=== PATIENT | male | born 1990 | race Caucasian/White ===

== ENCOUNTER 2020-04-04 06:08 | Emergency (ER) | payer MEDICAID, SELFPAY ==
--- NOTE | ~2020-04-04 | CT_ITS ---
EXAMINATION: CT abd pelvis lumbar w con DATE: 04/04/2020 08:12 INDICATION: Abdominal and back pain. Left leg pain and difficulty walking. TECHNIQUE: Computed tomography (CT) of the abdomen, pelvis and lumbar spine was performed with 100 mL Omnipaque-350 intravenous contrast. Automated exposure control and iterative reconstruction techniqu e were employed. The dose-length product was 523.06 mGy-cm. COMPARISON: None FINDINGS: Abdomen/pelvis: Minimal dependent atelectasis in the bilateral lower lobes. Heart size is normal. No pericardial or p leural effusion. Focal hepatic steatosis along the ligamentum teres. Gallbladder, pancreas, right kid ronn and bilateral adrenal glands are normal. 4 mm low-attenuation likely cyst at the lower pole of th e left kidney which is too small to definitively characterize. Splenic calcification consistent with old granulomatous disease. Moderate amount of colonic stool primarily in the proximal colon. There ap pears to be mild wall thickening along the sigmoid colon which could be seen with colitis. No bowel o bstruction. Normal appendix. Bladder is normal. No free intraperitoneal gas or fluid. No pathological ly enlarged abdominal or pelvic lymphadenopathy. Lumbar spine: Alignment is normal. Vertebral body and disc heights are normal. Minimal disc bulges without signific ant central canal stenosis at L3-L4 and L4-L5. Prominent posterior central disc protrusion at L5-S1 w hich only minimally narrows central canal at this level. The bulge also contributes along with mild r ight and minimal left facet osteoarthritis, to mild bilateral neural foraminal stenosis at L5-S1. Mil d bilateral facet osteoarthritis at T12-L1 and L1-L2 and minimal facet osteoarthritis at the remainin g levels. No other central canal or neural foraminal stenosis. IMPRESSION: 1. Mild wall thickening at the sigmoid colon suspicious for colitis which could be infectious, inflam matory or less likely ischemic in etiology. 2. Mild lumbar spondylosis. Reviewed, dictated and finalized at location A. IMPRESSION: 1. Mild wall thickening at the sigmoid colon suspicious for colitis which could be infectious, inflammatory or less likely ischemic in etiology. 2. Mild lumbar spondylosis.
[2020-04-04 06:16] VITALS: BP 123/74; PULSE 71; RESP 22; TEMP 37.3; O2SAT 97
--- NOTE | 2020-04-04 07:03 | ED.BACK ---
HPI - Back Pain/Injury General Chief Complaint: Back Pain/Injury Stated Complaint: back pain Time Seen by Provider: 04/04/20 06:59 Source: patient and family Mode of arrival: ambulatory Limitations: no limitations History of Present Illness HPI Narrative: Patient is a 30-year-old male with a history of chronic lower back pain who presents for evaluation of back pain and abdominal pain. Pt states she has seen a chiropracter in the past for his back pain, and has had negative x rays. Pt states he has had over 4 Tylenol 3, a day for three months without any improvement. No recent falls or injuries. No fever. Pt reports nausea, vomiting, and abd pain. Pain is throughout abdomen, associated with nausea and emesis since 2 am this morning. No hx of abd surgeries. No dysuria or hematuria. No saddle anesthesia. No leg numbness. Pt denies IVDA. Related Data Home Medications Medication Instructions Recorded Confirmed acetaminophen-codeine tablet 04/04/20 cyclobenzaprine mg 04/04/20 meloxicam 04/04/20 Allergies Allergy/AdvReac Type Severity Reaction Status Date / Time Pertussis Vaccines Allergy Severe Dyspnea / Verified 04/04/20 07:19 SOB Review of Systems Review of Systems: Narrative: CONSTITUTIONAL: Denies fever, chills, or sweats. CARDIOVASCULAR: Denies chest pain, palpitations, or edema. RESPIRATORY: Denies cough or dyspnea. GASTROINTESTINAL:Reports abd pain, n ausea, and vomiting GENITOURINARY: Denies dysuria or hematuria. SKIN: Denies rash or itching. MUSCULOSKELETAL:Reports left lower back pain NEUROLOGIC: Denies headache, numbness, or weakness. [facility] Past Medical History Medical History (Updated 04/04/20 @ 08:58 by Yolette Camacho MD) Chronic back pain Surgical History Surgical History (Updated 04/04/20 @ 07:23 by Yolette Camacho MD) History of tonsillectomy Social History Social History Second hand tobacco smoke exposure: Yes Alcohol intake: never Exam Narrative: Exam Narrative: GENERAL: Awake, alert, conversant, uncomfortable appearing HEAD: Normocephalic, atraumatic. EYES: PERRLA and EOMI. ENT: Nares clear, no rhinorrhea or epistaxis. Mucous membranes dry NECK: Supple. CHEST: No respiratory distress, breathing even and non labored HEART: Regular rate, sinus rhythm ABDOMEN:Non distended, tender throughout abdomen, tender in right lower quadrant, no rebound or guarding EXTREMITIES: Decreased range of motion in the left lower extremity due to pain, no edema, no erythema, no warmth over the hip, knee or ankle, full flexion extension in both ankles without pain, + straight leg raise on the right. Intact EHL/FHL bilateral feet, strength 5/5. Lumbar: No midline pain, + left SI joint tenderness that reproduces pain SKIN: Warm, dry, no rash. NEURO:No focal deficits. Alert and oriented x3 Course Vital Signs Vital signs: Vital Signs Temperature 37.3 C 04/04/20 06:16 Pulse Rate 71 04/04/20 06:16 Respiratory Rate 22 H 04/04/20 06:16 Blood Pressure 123/74 04/04/20 06:16 Pulse Oximetry 97 04/04/20 06:16 Temperature 37.3 C 04/04/20 06:16 Pulse Rate 78 04/04/20 08:23 Respiratory Rate 19 04/04/20 08:23 Blood Pressure 116/74 04/04/20 08:23 Pulse Oximetry 99 04/04/20 08:23 MDM - Back Pain/Injury MDM Narrative Medical decision making narrative: Patient presented for evaluation of back pain and abdominal pain. At the time of initial assessment, ABCs are intact and vital signs are stable. Patient does have range of motion at the left hip, does not have any saddle anesthesia, numbness, weakness, has been ambulatory which makes me think a central cord lesion or severe canal stenosis would be less likely. No fever, no midline tenderness to suggest spinal epidural abscess. Patient does have a leukocytosis. This may be stress like reaction from pain versus due to colitis which was also found on his CT scan. Give
[2020-04-04] MEDS: ONDANSETRON INJ 4 MG/2 ML VIAL IV PUSH (07:36)
[2020-04-04] MEDS: FAMOTIDINE 20 MG/2 ML VIAL IV PUSH (07:36)
[2020-04-04 07:37] LABS: Basophils Percent Auto 0.2 % (0.2-1.2); Eosinophils Absolute Auto 0.1 K/mm3 (0-0.3); Eosinophils Percent Auto 0.5 % (0-4.4); Hematocrit 44.9 % (42.0-52.0); Hemoglobin 15.7 g/dL (14.0-18.0); Immature Granulocyte Absolute 0.05 K/mm3 (0.00-0.031); Immature Granulocyte Percent A 0.3 % (0-0.5); Lymphocytes Absolute Auto 1.32 K/mm3 (0.9-3.2); Lymphocytes Percent Auto 8.7 % (18.3-44.2); Mean Corpuscular Hemoglobin 30.3 pg (26-34); Mean Corpuscular Volume 86.5 fl (80-100); Mean Platelet Volume 8.9 fl (7.4-10.4); Monocytes Absolute Auto 0.5 K/mm3 (0.1-0.6); Monocytes Percent Auto 3.4 % (2.6-8.5); Neutrophils Absolute Auto 13.2 K/mm3 (1.3-6.7); Neutrophils Percent Auto 86.9 % (45.5-73.1); Platelet Count Result 335 k/mm3 (150-375); Red Blood Count 5.19 M/mm3 (4.6-6.20); Red Cell Distribution Width 11.7 % (11.5-14.5); White Blood Count 15.2 K/mm3 (4.5-10.0)
[2020-04-04] MEDS: SODIUM CHLORIDE 0.9% IV 1,000 ML 999 ML IV CONT (07:37)
[2020-04-04] MEDS: MORPHINE SULFATE 4 MG/ML INJ IV PUSH (07:37)
--- NOTE | 2020-04-04 07:48 | PC.NURSE ---
pt to CT scan
[2020-04-04 07:50] LABS: Add Urine Microscopic? NO; Appearance Urine Clear (Clear); Bilirubin Urine Negative (Negative); Blood Urine Negative (Negative); Color Urine Yellow (Yellow); Glucose Urine UA Negative (Negative); Ketones Urine Negative (Negative); Leukocyte Esterase Ur Negative LEU/UL (Negative); Nitrate Urine Negative (Negative); Protein Urine Negative (Negative); Specific Grav Ur 1.014 (1.001-1.035); Urobilinogen Urine Negative mg/dL (<2.0)
[2020-04-04 07:51] LABS: Alanine Aminotransferase 46 U/L (4-50); Albumin Level 4.9 g/dL (3.5-5.1); Alkaline Phosphatase 84 U/L (38-126); Aspartate Amino Transferase 36 U/L (17-59); Bilirubin,Total 0.4 mg/dL (0.2-1.3); Blood Urea Nitrogen 15 mg/dL (9-20); CRP 1.3 mg/dL (<1.0); Calcium 9.5 mg/dL (8.4-10.2); Carbon Dioxide 27 mmol/L (22-30); Chloride 103 mmol/L (98-107); Estimated Glomerular Filt Rate > 60; Glucose 106 mg/dL (75-110); Lipase 53 U/L (23-300); Potassium 4.3 mmol/L (3.4-5.0); Sodium 138 mmol/L (137-145)
[2020-04-04 08:02] LABS: Erythrocyte Sedimentation Rate 6 mm/hr (0-20)
[2020-04-04 08:23] VITALS: BP 116/74; PULSE 78; RESP 19; O2SAT 99
[2020-04-04] MEDS: diazePAM 5 MG TABLET PO (09:06)
== END 2020-04-04 09:29 | disposition home or self-care (01) ==
PROVIDERS: Emergency Provider Emergency Medicine; PCP Family Medicine
DX: S39.012A Strain of muscle, fascia and tendon of lower back, initial encounter (principal); K52.9 Noninfective gastroenteritis and colitis, unspecified; M47.816 Spondylosis without myelopathy or radiculopathy, lumbar region; X58.XXXA Exposure to other specified factors, initial encounter
CPT/HCPCS: 36415; 72132; 74177; 80053; 81003; 83690; 85025; 85652; 86140; 96361; 96374; 96375; 99284; A9270; J2270; J2405; J7030; Q9967

== ENCOUNTER 2020-05-01 03:41 | Emergency (ER) | payer MEDICAID, SELFPAY ==
--- NOTE | ~2020-05-01 | XR_ITS ---
EXAMINATION: XR abdomen/kub 1V DATE: 05/01/2020 04:24 INDICATION: Constipation. Lower abdominal pain. TECHNIQUE: A supine view of the abdomen on 2 radiographs was obtained. COMPARISON: CT dated 04/04/2020 FINDINGS: Normal bowel gas pattern with no dilated gas-filled loops of bowel. A few phleboliths in the pelvis. No evident urolithiasis. Visualized portions of the lung bases are clear. Bones are unremarkable. IMPRESSION: 1. Normal study. Reviewed, dictated and finalized at location A. IMPRESSION: 1. Normal study.
[2020-05-01 03:45] VITALS: BP 131/98; PULSE 120; RESP 12; TEMP 36.4; O2SAT 100
[2020-05-01 04:06] LABS: Basophils Percent Auto 0.4 % (0.2-1.2); Eosinophils Absolute Auto 0.2 K/mm3 (0-0.3); Eosinophils Percent Auto 2.9 % (0-4.4); Hematocrit 48.2 % (42.0-52.0); Hemoglobin 16.5 g/dL (14.0-18.0); Immature Granulocyte Absolute 0.01 K/mm3 (0.00-0.031); Immature Granulocyte Percent A 0.1 % (0-0.5); Lymphocytes Absolute Auto 2.07 K/mm3 (0.9-3.2); Lymphocytes Percent Auto 29.8 % (18.3-44.2); Mean Corpuscular HGB Conc 34.2 g/dl (32-36); Mean Corpuscular Hemoglobin 30.4 pg (26-34); Mean Corpuscular Volume 88.8 fl (80-100); Mean Platelet Volume 8.9 fl (7.4-10.4); Monocytes Absolute Auto 0.4 K/mm3 (0.1-0.6); Monocytes Percent Auto 6.2 % (2.6-8.5); Neutrophils Absolute Auto 4.2 K/mm3 (1.3-6.7); Neutrophils Percent Auto 60.6 % (45.5-73.1); Platelet Count Result 355 k/mm3 (150-375); Red Blood Count 5.43 M/mm3 (4.6-6.20); Red Cell Distribution Width 12.4 % (11.5-14.5)
[2020-05-01] MEDS: SODIUM CHLORIDE 0.9% IV 1,000 ML 999 ML IV CONT (04:09)
[2020-05-01] MEDS: ONDANSETRON INJ 4 MG/2 ML VIAL IV PUSH (04:09)
--- NOTE | 2020-05-01 04:09 | ED.ABDPAIN ---
HPI - Abdominal Pain General Chief Complaint: Abdominal Pain Stated Complaint: Colitis is back Time Seen by Provider: 05/01/20 03:48 History of Present Illness HPI narrative: He has chronic back pain, which he was seen here for 1 month ago. At that time he was also having abdominal pain. He had a CT showing colitis and leukocytosis. He was treated with cipro. He was also provided with valium for the back pain. He followed up with his PCP and they prescribed a lower dose so he was taking them more often and ran out. He then tried taking tylenol 3 again. He became constipated and is now having abdominal pain again. Related Data Home Medications Medication Instructions Recorded Confirmed acetaminophen-codeine tablet 04/04/20 meloxicam 04/04/20 Allergies Allergy/AdvReac Type Severity Reaction Status Date / Time Pertussis Vaccines Allergy Severe Dyspnea / Verified 05/01/20 03:53 SOB Review of Systems Review of Systems: All systems reviewed & are unremarkable except as noted in HPI and below Constitutional: Constitutional: Denies fever(s) Cardiovascular: Cardiovascular: Denies chest pain Respiratory: Respiratory: Denies dyspnea Gastrointestinal: Gastrointestinal: Reports abdominal pain, Reports constipation, Reports nausea and Reports vomiting Genitourinary: Genitourinary: Denies dysuria Musculoskeletal: Musculoskeletal: Reports back pain Neurologic: Denies numbness and Reports weakness PMFSH Social History Social History Second hand tobacco smoke exposure: Yes Alcohol intake: never Exam Const: General: no acute distress and alert Orientation/consciousness: patient oriented x3 HENMT: Head: normal to inspection Resp: Effort & Inspection: normal respiratory effort Auscultation: clear to auscultation bilaterally Cardio: Rate: regular rate Rhythm: regular rhythm GI: Inspection: non-distended GI Palp: Yes Soft to palpation, No Guarding due to palpation present (GI) and No Rebound tenderness present Skin: General skin exam: normal color Rashes: no rashes Neuro: General: patient oriented x3 and moves all extremities Speech: normal speech Other: Stable gait. Normal and equal strength Extrem: General: normal to inspection Course Vital Signs Vital signs: Vital Signs Temperature 36.4 C 05/01/20 03:45 Pulse Rate 120 H 05/01/20 03:45 Respiratory Rate 12 05/01/20 03:45 Blood Pressure 131/98 H 05/01/20 03:45 Pulse Oximetry 100 05/01/20 03:45 Temperature 36.3 C L 05/01/20 05:02 Pulse Rate 88 05/01/20 05:02 Respiratory Rate 19 05/01/20 05:02 Blood Pressure 130/64 05/01/20 05:02 Pulse Oximetry 100 05/01/20 05:02 MDM - Abdominal Pain Lab Data Result diagrams: 05/01/20 04:00 05/01/20 04:00 Labs: Lab Results 05/01/20 05/01/20 05/01/20 Range/Units 04:00 04:00 04:00 WBC 7.0 (4.5-10.0) K/mm3 RBC 5.43 (4.6-6.20) M/mm3 Hgb 16.5 (14.0-18.0) g/dL Hct 48.2 (42.0-52.0) % MCV 88.8 (80-100) fl MCH 30.4 (26-34) pg MCHC 34.2 (32-36) g/dl RDW 12.4 (11.5-14.5) % Plt Count 355 (150-375) k/mm3 MPV 8.9 (7.4-10.4) fl Immature Gran % (Auto) 0.1 (0-0.5) % Neut % (Auto) 60.6 (45.5-73.1) % Lymph % (Auto) 29.8 (18.3-44.2) % Elk % (Auto) 6.2 (2.6-8.5) % Eos % (Auto) 2.9 (0-4.4) % Baso % (Auto) 0.4 (0.2-1.2) % Lymph # (Auto) 2.07 (0.9-3.2) K/mm3 Elk # (Auto) 0.4 (0.1-0.6) K/mm3 Eos # (Auto) 0.2 (0-0.3) K/mm3 Baso # (Auto) 0.0 (0.0-0.1) K/mm3 Abs Immat Gran (auto) 0.01 (0.00-0.031) K/mm3 Absolute Neuts (auto) 4.2 (1.3-6.7) K/mm3 Absolute Nucleated RBC 0.0 (0.0-0.012) K/mm3 Nucleated RBC % 0.0 (0.0-0.2) % Sodium 141 (137-145) mmol/L Potassium 4.0 (3.4-5.0) mmol/L Chloride 104 (98-107) mmol/L Carbon Dioxide 31 H (22-30) mmol/L Anion Gap 6 L (8
[2020-05-01 04:18] LABS: Add Urine Microscopic? NO; Alanine Aminotransferase 57 U/L (4-50); Alkaline Phosphatase 95 U/L (38-126); Anion Gap 6 mmol/L (8-16); Appearance Urine Clear (Clear); Aspartate Amino Transferase 40 U/L (17-59); Bilirubin Urine Negative (Negative); Bilirubin,Total 0.5 mg/dL (0.2-1.3); Blood Urea Nitrogen 14 mg/dL (9-20); Blood Urine Negative (Negative); Calcium 10.1 mg/dL (8.4-10.2); Carbon Dioxide 31 mmol/L (22-30); Chloride 104 mmol/L (98-107); Color Urine Colorless (Yellow); Estimated Glomerular Filt Rate > 60; Glucose 113 mg/dL (75-110); Glucose Urine UA Negative (Negative); Ketones Urine Negative (Negative); Leukocyte Esterase Ur Negative LEU/UL (Negative); Lipase 61 U/L (23-300); Nitrate Urine Negative (Negative); Protein Urine Negative (Negative); Sodium 141 mmol/L (137-145); Specific Grav Ur 1.005 (1.001-1.035); Urobilinogen Urine Negative mg/dL (<2.0)
[2020-05-01 05:02] VITALS: BP 130/64; PULSE 88; RESP 19; TEMP 36.3; O2SAT 100
== END 2020-05-01 05:03 | disposition home or self-care (01) ==
PROVIDERS: Emergency Provider Emergency Medicine; PCP Family Medicine
DX: R10.84 Generalized abdominal pain (principal)
CPT/HCPCS: 36415; 74018; 80053; 81003; 83690; 85025; 96361; 96374; 99284; J2405; J7030

== ENCOUNTER 2020-05-08 06:36 | Outpatient (CLI) | payer MEDICAID, SELFPAY ==
--- NOTE | ~2020-05-08 | MR_ITS ---
EXAMINATION: MR lumbar spine wo/w con EXAM DATE: 05/08/2020 08:05 INDICATION: Low back pain. TECHNIQUE: Multi-sequential, multiplanar MR images of the lumbar spine were obtained without contrast . Sagittal T1, T2, T2 fat saturation images. Axial T2 weighted images. Axial T1 weighted sequence. Patient was then injected with 15 mL Multihance intravenous contrast and reimaged. Postcontrast axi al and sagittal T1-weighted fat saturation sequences were obtained. There is no prior study for bobby patterson. FINDINGS: There is mild to moderate disc disease L5-S1 with annular fissure. The vertebral body and d isc heights are otherwise well maintained. There is 2-3 mm retrolisthesis L5 on S1. There are no susp icious marrow signal abnormalities. Paraspinal soft tissue is unremarkable. There is no pneumothorax suspected. There are no areas of abnormal enhancement on the post contrast images. Level by level evaluation: T12-L1: Disc does not extend beyond the endplate margin. Facet arthropathy: None. Neural foraminal stenosis: No stenosis. Central canal stenosis: No stenosis. L1-L2: Disc does not extend beyond the endplate margin. Facet arthropathy: None. Neural foraminal stenosis: No stenosis. Central canal stenosis: No stenosis. L2-L3: Disc does not extend beyond the endplate margin. Facet arthropathy: None. Neural foraminal stenosis: No stenosis. Central canal stenosis: No stenosis. L3-L4: Disc does not extend beyond the endplate margin. Facet arthropathy: Mild. Neural foraminal stenosis: No stenosis. Central canal stenosis: No stenosis. L4-L5: There is a minimal diffuse disc bulge. Facet arthropathy: Mild. Neural foraminal stenosis: No stenosis. Central canal stenosis: No stenosis. L5-S1: There is a mild diffuse disc bulge. Central annular fissure. Facet arthropathy: Mild. Neural foraminal stenosis: Mild bilateral. Central canal stenosis: Mild. IMPRESSION: 1. Mild lower lumbar spondylosis. Reviewed, dictated and finalized at location B.
== END 2020-05-08 06:37 | disposition home or self-care (01) ==
PROVIDERS: PCP Family Medicine; Visit Provider Family Medicine
DX: M47.896 Other spondylosis, lumbar region (principal)
CPT/HCPCS: 72158; A9577

== ENCOUNTER 2021-08-11 08:30 | Outpatient (RCR) | payer OTHER, SELFPAY ==
--- NOTE | 2021-07-28 15:21 | PTOPEVAL ---
Thank you for referring Brad Corey to [facility].? The patient is scheduled to be seen for therapy? 1-2 x/week for 8 weeks. Please review, sign, date and return this plan of care SAHY. I agree with and certify that the following plan of care is medically necessary. Referring Physician Date Attending Provider: Ramírez Castaneda, Diagnosis OA of back Additional Evaluation Detail x-ray by chiro told him it was a bulging disc MRI February 2020: There is mild to moderate disc disease L5-S1 with annular fissure. The vertebral body and disc heights are otherwise well maintained. There is 2-3 mm retrolisthesis L5 on S1. Subjective Information He had back pain starting 02/05 Query Text:As Reported By Patient/ when his was giving him Family a massage. He received an injection March 08 with no relief of symptoms. He was seen by a neurosurgeon, no surgery recommended. EMG normal. He received 3-4 therapy visits, but stopped due to pain. He reports he has ant hip pain as well as the low back pain. His back pain is being managed with medication. He has been using the cane since February for distance walking. He is limiting with lifting, bedning over, right leg movement due to hip pain and popping. Denies numbness or tingling in LE, but ant hip pain with prolonged sitting. He is not working, but trying for disability due to [place] and left eye blindness. Pain Assessment Right Anterior Hip(s) Reported Pain Level 6 Pain Description Tightness Pain Frequency Chronic,Continuous Lowest Pain Intensity 6 Greatest Pain Intensity 10 Pain Aggravating Factors Bending,Exercise/Activity, Lifting,Sitting,Walking Bilateral Lower Back Reported Pain Level 3 Pain Frequency Chronic,Continuous Lowest Pain Intensity 3 Greatest Pain Intensity 6 Pain Aggra
--- NOTE | 2021-08-04 14:21 | PCPTNOTE ---
Patient called & cancelled scheduled appointment this date due to being out of town.
--- NOTE | 2021-08-18 09:01 | PCPTNOTE ---
Patient did not show up for scheduled appointment this date. Called and spoke with Pt. He stated I called my doctor and am waiting to hear back on whether or not to continue therapy due to increased hip pain. Pt requested to keep 's appointment and he will call if he needs to cancel. This is Pt's first N/S.
--- NOTE | 2021-08-20 08:59 | PCPTNOTE ---
Patient did not show up for scheduled appointment this date. Called and left voicemail about missed appointment. Informed Pt of upcoming Re-eval on 08/25/21 and to call if unable to make it. This is Pt's 2 N/S.
--- NOTE | 2021-08-25 08:49 | PCPTNOTE ---
Patient did not show up for scheduled appointment this date.Will DC him due to 3rd no show and re-eval visit.
--- NOTE | 2021-08-25 08:51 | PCPTNOTE ---
Admitting Provider: Attending Provider: Ramírez Castaneda, Physical Therapy Discharge Note Patient:Brad Corey Date of :1990 Patient has not returned for any further treatments since 08/11/2021, therefore he will be discharged at this time. Patient?s initial visit was on 07/28/2021 10:30 and he had a total of 3 visits with 4 canceled/no show visits. The goals have been not met due to his limited compliance with therapy. Thank you for referring this patient to [facility]. Please review, sign, date and return this discharge summary SHAY. I have been updated about the patient's current status and I agree with discharge from the above service at this time. Referring Physician Date
== END 2021-08-26 17:15 | disposition home or self-care (01) ==
LOC: ANHPT 08:30
PROVIDERS: PCP Family Medicine; Visit Provider Family Medicine
DX: M19.90 Unspecified osteoarthritis, unspecified site (principal)
CPT/HCPCS: 97014; 97110; 97140; 97162; G0283

== ENCOUNTER 2021-09-18 08:24 | Outpatient (CLI) | payer OTHER, SELFPAY ==
--- NOTE | ~2021-09-18 | XR_ITS ---
EXAMINATION: XR hip BI 2V w AP pelvis EXAM DATE: 09/18/2021 08:43 INDICATION: Right hip pain. TECHNIQUE: Each hip imaged independently (separate right and also left hip) 'frog leg' and frontal p rojections for interpretation. Frontal projection pelvis. There is no prior study for comparison. FINDINGS: No radiographic evidence of hip avascular necrosis. There are no acute fractures or disloc ations identified. There is no subcutaneous gas. The soft tissue is unremarkable. There are no ra diopaque foreign bodies. IMPRESSION: Normal x-ray exam. Reviewed, dictated and finalized at location A. B MANAGER IMPRESSION: Normal x-ray exam.
== END 2021-09-18 08:25 | disposition home or self-care (01) ==
DX: M25.551 Pain in right hip (principal)
CPT/HCPCS: 73521

== ENCOUNTER 2021-10-26 08:21 | Emergency (ER) | payer OTHER, SELFPAY ==
[2021-10-26 08:26] VITALS: BP 132/85; PULSE 84; RESP 14; TEMP 36; O2SAT 98
--- NOTE | 2021-10-26 09:18 | ED.GENADULT ---
HPI - General Adult General Chief complaint: Wound/Laceration Stated complaint: mouth injury Time Seen by Provider: 10/26/21 09:07 Source: patient Mode of arrival: ambulatory Limitations: no limitations History of Present Illness HPI narrative: Patient presents for evaluation of facial injury. He indicates he was shoveling his grandmother's residence today when the shovel hit him in the face, just below the lower lip. He reports a wound to the inner lower lip. No LOC. Reports some bleeding from the inner lip and from the wound just below the external aspect of the lower lip. Denies any significant pain. Denies dental injury. Date of last tetanus 3 years ago. He is not diabetic. No additional complaints or concerns. Related Data Home Medications Medication Instructions Recorded Confirmed acetaminophen-codeine tablet 04/04/20 meloxicam 04/04/20 Allergies Allergy/AdvReac Type Severity Reaction Status Date / Time Pertussis Vaccines Allergy Severe Dyspnea / Verified 10/26/21 08:28 SOB Review of Systems Review of Systems: CONSTITUTIONAL: Denies fever, chills, or sweats. EYES: Denies visual changes, redness, or discharge. ENT: Reports wound to inner aspect of lower lip and below the lower lip externally. Denies rhinorrhea, congestion, sore throat, or otalgia. CARDIOVASCULAR: Denies chest pain, palpitations, or edema. RESPIRATORY: Denies cough or dyspnea. GASTROINTESTINAL: Denies abdominal pain, nausea, vomiting, or diarrhea. GENITOURINARY: Denies dysuria or hematuria. SKIN: Denies rash or itching. MUSCULOSKELETAL: Denies back pain, joint pain, or myalgia. NEUROLOGIC: Denies headache, numbness, dizziness, or weakness. PSYCHIATRIC: Denies anxiety or depression. [facility] Past Medical History Medical History Chronic back pain Surgical History Surgical History History of tonsillectomy Family History Family History Mother Family history non-contributory Social History Social History (Updated 10/26/21 @ 09:27 by ALETA Proctor, BC) Second hand tobacco smoke exposure: Yes Alcohol intake: never Substance use: current Substance use type: marijuana Living arrangements: with family Gender identity (if verbalized by the patient): Male Sexual Orientation (if Verbalized by the Patient): Straight or Heterosexual Spiritual care concerns: No Exam Narrative: GENERAL: Well-appearing, well-nourished, and in no acute distress. HEAD: Normocephalic EYES: PERRLA and EOMI. ENT: Nares clear, no rhinorrhea or epistaxis. Mucous membranes moist. Approximately 5mm puncture mary to inner aspect of lower lip. Oropharynx without tonsillar hypertrophy exudate or other lesions. Bilateral TMs pearly blunt nonbulging NECK: Supple. No adenopathy or masses. No carotid bruits or JVD CHEST: Clear to auscultation. No respiratory distress. No wheezes rales or rhonchi HEART: Regular rate and rhythm. No murmur heard. Normal peripheral pulses. ABDOMEN: Soft, nontender, nondistended, normal active bowel sounds. EXTREMITIES: Normal range of motion. No edema. SKIN: Approximately 8mm linear abrasion in transverse formation just inferior to lower lip externally. This does not appear to communicate with wound to inner lower lip. Warm, dry, no rash. NEURO: No focal deficits. Alert and oriented x3. PSYCH: Normal mood and affect. Course Course Emergency Course: This is a 31-year-old male who presented for evaluation of an abrasion to the face and puncture wound to inner aspect of lower lip. These do not appear to communicate with one another. Bleeding is controlled on my exam. It does not appear that either wound would benefit from closure, however I did offer to do so. Pt declined. He is UTD on tetanus. He was advised on wound care. He sh
[2021-10-26 11:07] VITALS: BP 138/81; PULSE 70; RESP 14; TEMP 36.7; O2SAT 99
== END 2021-10-26 09:28 | disposition home or self-care (01) ==
PROVIDERS: Emergency Provider Nurse Practitioner
DX: S01.511A Laceration without foreign body of lip, initial encounter (principal); W22.8XXA Striking against or struck by other objects, initial encounter; Y93.H1 Activity, digging, shoveling and raking
CPT/HCPCS: 99282

== ENCOUNTER 2021-12-02 09:27 | Emergency (ER) | payer OTHER, SELFPAY ==
[2021-12-02 09:32] VITALS: BP 150/97; PULSE 86; RESP 16; TEMP 36.4; O2SAT 99
[2021-12-02 10:33] VITALS: BP 126/89; PULSE 76; RESP 16; TEMP 36.9; O2SAT 99
--- NOTE | 2021-12-02 11:01 | ECG_ITS ---
Measurements Intervals [place] Rate: 66 P: 44 [place]: 135 QRS: 43 QRSD: 87 T: 40 QT: 362 QTc: 382 Interpretive Statements SINUS RHYTHM COMPARED TO ECG 05/25/2019 00:57:50 NO SIGNIFICANT CHANGES Electronically Signed On 12-02-2021 13:14:58 CDT by Marilyn Reed M.D.
--- NOTE | 2021-12-02 11:02 | ED.WEAKNESS ---
HPI - Weakness General Chief complaint: Weakness Stated complaint: ? medication reaction Time Seen by Provider: 12/02/21 10:48 History of Present Illness HPI Narrative: 31-year-old male presents emergency room with complaints of irritability, shortness of breath, occasional palpitations, inability to concentrate, brain fog. Patient states that he abruptly discontinued his diazepam 3 weeks ago and his symptoms started 1 week ago. Related Data Home Medications Medication Instructions Recorded Confirmed docusate sodium PO 12/02/21 12/02/21 pantoprazole PO 12/02/21 polyethylene glycol 3350 12/02/21 pregabalin 12/02/21 Allergies Allergy/AdvReac Type Severity Reaction Status Date / Time Pertussis Vaccines Allergy Severe Dyspnea / Verified 12/02/21 09:35 SOB Review of Systems Review of Systems: CONSTITUTIONAL: Denies fever, chills, or sweats. EYES: Denies visual changes, redness, or discharge. ENT: Denies rhinorrhea, congestion, sore throat, or otalgia. CARDIOVASCULAR: Denies chest pain, palpitations, or edema. RESPIRATORY: Denies cough or dyspnea. GASTROINTESTINAL: Denies abdominal pain, nausea, vomiting, or diarrhea. GENITOURINARY: Denies dysuria or hematuria. SKIN: Denies rash or itching. MUSCULOSKELETAL: Denies back pain, joint pain, or myalgia. NEUROLOGIC: Denies headache, numbness. Reports dizziness, or weakness. PSYCHIATRIC: Reports anxiety. [facility] Past Medical History Medical History Chronic back pain Surgical History Surgical History History of tonsillectomy Family History Family History Mother Family history non-contributory Social History Social History (Updated 10/26/21 @ 09:27 by ALETA Proctor, ) Second hand tobacco smoke exposure: Yes Alcohol intake: never Substance use: current Substance use type: marijuana Gender identity (if verbalized by the patient): Male Sexual Orientation (if Verbalized by the Patient): Straight or Heterosexual Spiritual care concerns: No Course Vital Signs Vital signs: Vital Signs Temperature 36.4 C 12/02/21 09:32 Pulse Rate 86 12/02/21 09:32 Respiratory Rate 16 12/02/21 09:32 Blood Pressure 150/97 H 12/02/21 09:32 Pulse Oximetry 99 12/02/21 09:32 Temperature 36.9 C 12/02/21 10:33 Pulse Rate 76 12/02/21 10:33 Respiratory Rate 16 12/02/21 10:33 Blood Pressure 126/89 12/02/21 10:33 Pulse Oximetry 99 12/02/21 10:33 MDM - Weakness MDM Narrative Medical decision making narrative: 31-year-old male presented emergency room complaints of anxiety, brain fog, dizziness. Patient stated that he discontinued taking his Valium abruptly, after being on it for nearly 3 years. Patient responded well to a liter of fluid and a milligram of Ativan. CBC and CMP were unremarkable. EKG was normal Lab Data Attestation: I reviewed the patient's lab results. Result diagrams: 12/02/21 11:31 12/02/21 11:31 Labs: Lab Results 12/02/21 12/02/21 Range/Units 11:31 11:31 WBC 12.8 H (4.5-10.0) K/mm3 RBC 5.67 (4.6-6.20) M/mm3 Hgb 17.3 (14.0-18.0) g/dL Hct 50.0 (42.0-52.0) % MCV 88.2 (80-100) fl MCH 30.5 (26-34) pg MCHC 34.6 (32-36) g/dl RDW 11.9 (11.5-14.5) % Plt Count 379 H (150-375) k/mm3 MPV 8.6 (7.4-10.4) fl Immature Gran % (Auto) 0.2 (0-0.5) % Neut % (Auto) 76.2 H (45.5-73.1) % Lymph % (Auto) 16.9 L (18.3-44.2) % Glynn % (Auto) 5.8 (2.6-8.5) % Eos % (Auto) 0.5 (0-4.4) % Baso % (Auto) 0.4 (0.2-1.2) % Lymph # (Auto) 2.17 (0.9-3.2) K/mm3 Glynn # (Auto) 0.7 H (0.1-0.6) K/mm3 Eos # (Auto) 0.1 (0-0.3) K/mm3 Baso # (Auto) 0.1 (0.0-0.1) K/mm3 Abs Immat Gran (auto) 0.03 (0.00-0.031) K/mm3 Absolute Neuts (auto) 9.8 H (1.3-
[2021-12-02] MEDS: SODIUM CHLORIDE 0.9% IV 1,000 ML 999 ML IV CONT (11:33)
[2021-12-02 11:45] LABS: Basophils Absolute Auto 0.1 K/mm3 (0.0-0.1); Basophils Percent Auto 0.4 % (0.2-1.2); Eosinophils Absolute Auto 0.1 K/mm3 (0-0.3); Eosinophils Percent Auto 0.5 % (0-4.4); Hemoglobin 17.3 g/dL (14.0-18.0); Immature Granulocyte Absolute 0.03 K/mm3 (0.00-0.031); Immature Granulocyte Percent A 0.2 % (0-0.5); Lymphocytes Absolute Auto 2.17 K/mm3 (0.9-3.2); Lymphocytes Percent Auto 16.9 % (18.3-44.2); Mean Corpuscular HGB Conc 34.6 g/dl (32-36); Mean Corpuscular Hemoglobin 30.5 pg (26-34); Mean Corpuscular Volume 88.2 fl (80-100); Mean Platelet Volume 8.6 fl (7.4-10.4); Monocytes Absolute Auto 0.7 K/mm3 (0.1-0.6); Monocytes Percent Auto 5.8 % (2.6-8.5); Neutrophils Absolute Auto 9.8 K/mm3 (1.3-6.7); Neutrophils Percent Auto 76.2 % (45.5-73.1); Platelet Count Result 379 k/mm3 (150-375); Red Blood Count 5.67 M/mm3 (4.6-6.20); Red Cell Distribution Width 11.9 % (11.5-14.5); White Blood Count 12.8 K/mm3 (4.5-10.0)
[2021-12-02] MEDS: LORazepam (*CRX) 0.5 MG TABLET 1 MG PO (11:55)
[2021-12-02 11:56] LABS: Alanine Aminotransferase 23 U/L (4-50); Albumin Level 5.3 g/dL (3.5-5.1); Alkaline Phosphatase 75 U/L (38-126); Anion Gap 9 mmol/L (8-16); Aspartate Amino Transferase 29 U/L (17-59); Bilirubin,Total 0.9 mg/dL (0.2-1.3); Blood Urea Nitrogen 16 mg/dL (9-20); Calcium 9.7 mg/dL (8.4-10.2); Carbon Dioxide 28 mmol/L (22-30); Chloride 103 mmol/L (98-107); Estimated CRCL calculation 93 ml/min; Estimated Glomerular Filt Rate > 60; Glucose 102 mg/dL (65-110); Potassium 4.1 mmol/L (3.4-5.0); Sodium 140 mmol/L (137-145)
[2021-12-02 12:50] VITALS: BP 120/85; PULSE 76; RESP 15; O2SAT 99
== END 2021-12-02 12:55 | disposition home or self-care (01) ==
PROVIDERS: Emergency Provider Nurse Practitioner Family
DX: F13.230 Sedative, hypnotic or anxiolytic dependence with withdrawal, uncomplicated (principal); G89.29 Other chronic pain
CPT/HCPCS: 36415; 80053; 85025; 93005; 96360; 99283; A9270; J7030

== ENCOUNTER 2022-03-26 08:05 | Emergency (ER) | payer OTHER, SELFPAY ==
[2022-03-26 08:12] VITALS: BP 139/88; PULSE 93; RESP 16; TEMP 36.4; O2SAT 99
--- NOTE | 2022-03-26 08:41 | ED.GENADULT ---
HPI - General Adult General Chief complaint: Unspecified Stated complaint: bilat arm numbness/weakness/leg numbness Time Seen by Provider: 03/26/22 08:24 History of Present Illness HPI narrative: 32-year-old male presents emergency room with some vague symptoms. He states he been having numbness to both of his arms and legs. He has no focal weakness. They just feel numb. He also feels like my heart is going to beat out of my chest. He just went to the [facility] a few days ago and had a complete work-up there which was all unremarkable. He brought in with him the testing which included a normal CBC, comprehensive metabolic panel, and troponin. He states he also did an EKG. They told him it was anxiety and put him on some Atarax. He already has an appointment to follow-up with a primary care physician this coming Tuesday. He also had a recent dental extraction and is followed up with a dentist and has no problems from that. Patient had been on Valium for approximately 2-1/2 to 3 years it came off about a year or 2 ago. Related Data Home Medications Medication Instructions Recorded Confirmed docusate sodium 100 mg capsule PO 12/02/21 12/02/21 pantoprazole 40 mg tablet,delayed PO 12/02/21 release polyethylene glycol 3350 17 12/02/21 gram/dose oral powder pregabalin 100 mg capsule 12/02/21 Allergies Allergy/AdvReac Type Severity Reaction Status Date / Time Pertussis Vaccines Allergy Severe Dyspnea / Verified 12/02/21 09:35 SOB Review of Systems Review of Systems: CONSTITUTIONAL: Denies fever, chills, or sweats. EYES: Denies visual changes, redness, or discharge. ENT: Denies rhinorrhea, congestion, sore throat, or otalgia. CARDIOVASCULAR: Denies chest pain, palpitations, or edema. RESPIRATORY: Denies cough or dyspnea. GASTROINTESTINAL: Denies abdominal pain, nausea, vomiting, or diarrhea. GENITOURINARY: Denies dysuria or hematuria. SKIN: Denies rash or itching. MUSCULOSKELETAL: Denies back pain, joint pain, or myalgia. NEUROLOGIC: Denies any headache or visual problems. He is blind out of the left eye since . He has no focal weakness. Just has numbness to his arms and legs PSYCHIATRIC: Denies anxiety or depression. [facility] Past Medical History Medical History Chronic back pain Surgical History Surgical History History of tonsillectomy Family History Family History Mother Family history non-contributory Social History Social History Second hand tobacco smoke exposure: Yes Alcohol intake: never Substance use: current Substance use type: marijuana Gender identity (if verbalized by the patient): Male Sexual Orientation (if Verbalized by the Patient): Straight or Heterosexual Spiritual care concerns: No Exam Narrative: APPEARANCE: Well appearing, no pain or distress, well-nourished. Head normocephalic and atraumatic. EYES: PERRLA/EOMI, conjunctivae very clear. NOSE: Normal with no drainage EARS:TMS clear Talita Baez, with good light reflex. THROAT: Pharynx clear, no exudate. NECK: Supple. No adenopathy, no masses. RESPIRATORY: Airway patent, respirations nonlabored. Clear to auscultation bilaterally, no rales, rhonchi, wheezing. CARDIOVASCULAR: Regular rate and rhythm without murmurs, rubs, or gallops. ABDOMINAL: Soft, nontender, nondistended, no hepatosplenomegaly Musculoskeletal: Moves all extremities. Strength/ROM intact, No edema, No calf tenderness. NEURO: Alert. Cranial nerves II through XII intact. Normal gait. Good coordination. Nonfocal examination. SKIN:: Warm, dry. Normal Color PSYCHIATRIC: Normal affect/mood, normal interaction Course Vital Signs Vital signs: Vital Signs Temperature 97.6 F 03/26/22 08:12 Pulse Rate 93 03/26/22
== END 2022-03-26 09:28 | disposition home or self-care (01) ==
LOC: ANHED 08:52
PROVIDERS: Emergency Provider Emergency Medicine
DX: R20.2 Paresthesia of skin (principal); F41.9 Anxiety disorder, unspecified; Z77.22 Contact with and (suspected) exposure to environmental tobacco smoke (acute) (chronic)
CPT/HCPCS: 99281

== ENCOUNTER 2023-09-30 15:11 | Emergency (ER) | payer OTHER, SELFPAY ==
[2023-09-30] VITALS (7 sets, daily range): BP systolic 108–141; BP diastolic 67–96; PULSE 77–114; RESP 15–18; TEMP 36.8; O2SAT 95–100
--- NOTE | ~2023-09-30 | XR_ITS ---
EXAMINATION: XR chest 2V Exam Date/Time: 09/30/2023 18:05 OUTREACH ASSISTANT HISTORY: cough, weakness Comparison: 05/25/2019. RESULT: Lines, tubes, and devices: None. Lungs and pleura: Scattered reticulonodular opacities and peribronchial vascular thickening. Cardiomediastinal silhouette: Stable. Other: No acute osseous or upper abdominal finding. IMPRESSION: Diffusely increased liver attenuation, consider evaluation for iron overload. Alternate etiologies in clude hemosiderosis, copper deposition disorders, and certain medication effects. Panniculitis. Reviewed, dictated and finalized at location K. EACH ASSISTANT IMPRESSION: Diffusely increased liver attenuation, consider evaluation for iron overload. A lternate etiologies include hemosiderosis, copper deposition disorders, and cer tain medication effects. Panniculitis.
--- NOTE | 2023-09-30 17:21 | ECG_ITS ---
Measurements Intervals [place] Rate: 76 P: 42 AK: 137 QRS: 39 QRSD: 88 T: 33 QT: 351 QTc: 395 Interpretive Statements SINUS RHYTHM BASELINE ARTIFACT- I, II, AVL NORMAL ECG NO PREVIOUS ECG AVAILABLE FOR COMPARISON Electronically Signed On 09-30-2023 20:14:17 CRITICAL CARE UNIT NURSE by Randell Watt D.O.
--- NOTE | 2023-09-30 17:21 | ED.GENADULT ---
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 Patient states he was doing the dishes earlier today when he developed tingling and numbness in his left pinky which concerned him and brought did him to come to the ED. He states that his pinky, a feels like his muscles are tightening. he also feels like his muscles are weak and cramping all over. He does state that he works out multiple times per week and try to lift weights today but could not secondary to muscle weakness. He denies headache, vision changes, neck pain or injury, other focal numbness or weakness, chest pain or shortness of breath, abdominal pain, nausea, vomiting, diarrhea, hematuria. He does report a mild productive cough for the past 2 days, denies fever. He also reports a sore throat and swollen glands in his neck and states that his son is currently being treated for strep. Denies rash. patient also states he feels anxious when he is out in public, however did not feel like he was anxious at the time of the onset of symptoms. Patient denies alcohol use. He reports daily marijuana use, otherwise no drug use. <GLORIA Redd Last Filed: 09/30/23 19:41> Related Data Home medications: Home Medications Medication Instructions Recorded Confirmed docusate sodium 100 mg capsule PO 12/02/21 12/02/21 pantoprazole 40 mg tablet,delayed PO 12/02/21 release polyethylene glycol 3350 17 12/02/21 gram/dose oral powder pregabalin 100 mg capsule 12/02/21 <GLORIA Redd Last Filed: 09/30/23 19:41> Allergies/adverse reactions: Allergies Allergy/AdvReac Type Severity Reaction Status Date / Time Pertussis Vaccines Allergy Severe Dyspnea / Verified 09/30/23 20:08 SOB <Marie Box PA-C - Last Filed: 09/30/23 19:41> Review of Systems Review of Systems: CONSTITUTIONAL: Denies fever, chills, or sweats. EYES: Denies visual changes, redness, or discharge. ENT: Denies rhinorrhea, congestion, sore throat, or otalgia. CARDIOVASCULAR: Denies chest pain, palpitations, or edema. RESPIRATORY: See HPI GASTROINTESTINAL: Denies abdominal pain, nausea, vomiting, or diarrhea. GENITOURINARY: Denies dysuria or hematuria. SKIN: Denies rash or itching. MUSCULOSKELETAL: see HPI NEUROLOGIC: Denies headache, numbness, or weakness. PSYCHIATRIC: Denies anxiety or depression. <Marie Box PA-C - Last Filed: 09/30/23 19:41> [facility] Past Medical History Medical History: Medical History Chronic back pain <Marie Box PA-C - Last Filed: 09/30/23 19:41> Surgical History Surgical History: Surgical History History of tonsillectomy <Marie Box PA-C - Last Filed: 09/30/23 19:41> Family History Family History: Family History Mother Family history non-contributory <Marie Box PA-C - Last Filed: 09/30/23 19:41> Social History Social History: Social History Second hand tobacco smoke exposure: Yes Alcohol intake: never Substance use: current Substance use type: marijuana Living arrangements: with family Gender identity (if verbalized by the patient): Male Sexual Orientation (if Verbalized by the Patient): Straight or Heterosexual Spi
[2023-09-30] MEDS: SODIUM CHLORIDE 0.9% IV 1,000 ML 999 ML IV CONT (17:45)
[2023-09-30 17:57] LABS: Appearance Urine Clear (Clear); Bilirubin Urine Negative (Negative); Blood Urine Negative (Negative); Color Urine Yellow (Yellow); Glucose Urine UA Negative (Negative); Ketones Urine Negative (Negative); Leukocyte Esterase Ur Negative LEU/UL (Negative); Nitrate Urine Negative (Negative); Protein Urine Negative (Negative); Specific Grav Ur 1.021 (1.001-1.035); Urobilinogen Urine 0.2 mg/dL (<2.0); pH Urine 6.5 (5.0-9.0)
[2023-09-30 17:59] LABS: Basophils Absolute Auto 0.1 K/mm3 (0.0-0.1); Basophils Percent Auto 0.5 % (0.2-1.2); Eosinophils Absolute Auto 0.2 K/mm3 (0-0.3); Hematocrit 42.6 % (42.0-52.0); Immature Granulocyte Absolute 0.04 K/mm3 (0.00-0.031); Immature Granulocyte Percent A 0.4 % (0-0.5); Mean Corpuscular HGB Conc 32.9 g/dl (32-36); Mean Corpuscular Hemoglobin 29.6 pg (26-34); Mean Corpuscular Volume 90.1 fl (80-100); Mean Platelet Volume 8.5 fl (7.4-10.4); Monocytes Absolute Auto 0.7 K/mm3 (0.1-0.6); Monocytes Percent Auto 6.3 % (2.6-8.5); Neutrophils Absolute Auto 7.2 K/mm3 (1.3-6.7); Neutrophils Percent Auto 68.8 % (45.5-73.1); Platelet Count Result 360 k/mm3 (150-375); Red Blood Count 4.73 M/mm3 (4.6-6.20); Red Cell Distribution Width 11.9 % (11.5-14.5); White Blood Count 10.5 K/mm3 (4.5-10.0)
[2023-09-30 18:09] LABS: Add Urine Microscopic? NO
[2023-09-30 18:11] LABS: Alanine Aminotransferase 38 U/L (6-50); Albumin Level 4.1 g/dL (3.5-5.1); Alkaline Phosphatase 80 U/L (38-126); Anion Gap 5 mmol/L (8-16); Aspartate Amino Transferase 33 U/L (17-59); Bilirubin,Total 0.4 mg/dL (0.2-1.3); Blood Urea Nitrogen 16 mg/dL (9-20); Calcium 8.8 mg/dL (8.4-10.2); Carbon Dioxide 29 mmol/L (22-30); Chloride 103 mmol/L (98-107); Creatine Kinase 165 U/L (55-170); Estimated CRCL calculation 112 ml/min; Estimated Glomerular Filt Rate > 60; Glucose 93 mg/dL (65-110); Magnesium 2.1 mg/dL (1.6-2.3); Potassium 4.1 mmol/L (3.4-5.0); Sodium 137 mmol/L (137-145)
[2023-09-30 21:07] LABS: Strep Group A RT-PCR NOT DETECTED (Negative)
[2023-09-30 21:18] LABS: Influenza A QL RT-PCR Negative (Negative); Influenza B QL RT-PCR Negative (Negative); RSV RNA, RT-PCR Negative (Negative); SARS-CoV-2 RNA PCR Negative (Negative)
== END 2023-09-30 22:10 | disposition home or self-care (01) ==
PROVIDERS: Emergency Provider Physician Assistant
DX: R53.1 Weakness (principal); R20.2 Paresthesia of skin; Z20.822 Contact with and (suspected) exposure to COVID-19; H91.90 Unspecified hearing loss, unspecified ear; H54.62 Unqualified visual loss, left eye, normal vision right eye; Z77.22 Contact with and (suspected) exposure to environmental tobacco smoke (acute) (chronic)
CPT/HCPCS: 36415; 71046; 80053; 81003; 82550; 83735; 84443; 85025; 87637; 87651; 93005; 96360; 99283; J7030

== ENCOUNTER 2023-10-25 23:06 | Emergency (ER) | payer OTHER, SELFPAY ==
[2023-10-25 23:18] VITALS: BP 128/83; PULSE 88; RESP 17; TEMP 36.6; O2SAT 99
[2023-10-26 01:42] VITALS: BP 155/82; PULSE 91; RESP 17; O2SAT 98
[2023-10-26 01:45] VITALS: BP 155/82; PULSE 68; O2SAT 98
[2023-10-26 01:48] VITALS: BP 140/91; PULSE 74; RESP 18; O2SAT 98
--- NOTE | 2023-10-26 02:42 | ED.GENADULT ---
HPI - General Adult General Chief complaint: Recheck/Abnormal Lab/Rx Stated complaint: htn Time Seen by Provider: 10/26/23 02:19 History of Present Illness HPI narrative: patient 33-year-old gentleman presents to emergency department with chief complaint of high blood pressure. Patient reports that he was recently diagnosed with hypertension and was started on lisinopril 10 mg. The patient reports this evening he woke up suddenly and felt a very anxious. The patient reports that he took his blood pressure and it was elevated patient states that he has no chest pain denies shortness of breath denies focal neurological deficit denies headache. The patient went to say knees and was told that his blood pressure was fine he left there then decided to come to our emergency department the patient states that currently he feels okay but was very worried about his blood pressure. Related Data Home Medications Medication Instructions Recorded Confirmed docusate sodium 100 mg capsule PO 12/02/21 12/02/21 pantoprazole 40 mg tablet,delayed PO 12/02/21 release polyethylene glycol 3350 17 12/02/21 gram/dose oral powder pregabalin 100 mg capsule 12/02/21 Allergies Allergy/AdvReac Type Severity Reaction Status Date / Time Pertussis Vaccines Allergy Severe Dyspnea / Verified 10/26/23 01:45 SOB Review of Systems Review of Systems: A 10 system review of systems was completed on the patient and is negative except for what is stated in the HPI. Nursing and ancillary documentation was reviewed. [facility] Past Medical History Medical History Chronic back pain Surgical History Surgical History History of tonsillectomy Family History Family History Mother Family history non-contributory Social History Social History Second hand tobacco smoke exposure: Yes Alcohol intake: never Substance use: current Substance use type: marijuana Living arrangements: with family Gender identity (if verbalized by the patient): Male Sexual Orientation (if Verbalized by the Patient): Straight or Heterosexual Spiritual care concerns: No Exam Narrative: GENERAL: Well-appearing, well-nourished, and in no acute distress. HEAD: Normocephalic, atraumatic. EYES: PERRLA and EOMI. ENT: Nares clear, no rhinorrhea or epistaxis. Mucous membranes moist. NECK: Supple. CHEST: Clear to auscultation. No respiratory distress. HEART: Regular rate and rhythm. No murmur heard. Normal peripheral pulses. ABDOMEN: Soft, nontender, nondistended, normal active bowel sounds. EXTREMITIES: Normal range of motion. No edema. SKIN: Warm, dry, no rash. NEURO: No focal deficits. Alert and oriented x3. PSYCH: Normal mood and affect. Course Vital Signs Vital signs: Vital Signs Temperature 36.6 C 10/25/23 23:18 Pulse Rate 88 10/25/23 23:18 Respiratory Rate 17 10/25/23 23:18 Blood Pressure 128/83 10/25/23 23:18 Pulse Oximetry 99 10/25/23 23:18 Temperature 36.6 C 10/25/23 23:18 Pulse Rate 91 10/26/23 01:42 Respiratory Rate 17 10/26/23 01:42 Blood Pressure 155/82 H 10/26/23 01:42 Pulse Oximetry 98 10/26/23 01:42 Oxygen Delivery Room Air 10/26/23 01:42 Medical Decision Making MDM Narrative Medical decision making narrative: Differential diagnosis includes hypertensive urgency, essential hypertension, the patient is not showing signs of end-organ dysfunction or focal neurological deficit. Patient has an appointment today with his primary care provider the patient was instructed to techniques for appropriately managing his blood pressure at home including keeping a daily log with a standardized time for blood pressure checks the patient
[2023-10-26 02:55] VITALS: BP 140/85; PULSE 68; RESP 16; O2SAT 99
[2023-10-26 02:57] VITALS: BP 140/91; PULSE 89; RESP 15; O2SAT 100
== END 2023-10-26 02:57 | disposition home or self-care (01) ==
PROVIDERS: Emergency Provider Emergency Medicine
DX: I10 Essential (primary) hypertension (principal); G89.29 Other chronic pain
CPT/HCPCS: 99283

== ENCOUNTER 2023-11-02 08:40 | Emergency (ER) | payer OTHER, SELFPAY ==
[2023-11-02 09:24] VITALS: BP 133/72; PULSE 87; RESP 16; TEMP 37.7; O2SAT 99
--- NOTE | 2023-11-02 09:27 | ED.URI ---
HPI - URI/Sore Throat General Chief Complaint: Upper Respiratory Infection Stated Complaint: throat sore, strep exposure Time Seen by Provider: 11/02/23 09:27 Source: patient Mode of arrival: ambulatory Limitations: no limitations History of Present Illness HPI Narrative: 33-year-old male presents with complaint of sore throat for 2 days. Reports fever on Tuesday was 102 F. States his came here last night and tested positive for strep throat. All systems reviewed and negative except as noted above. Related Data Home Medications Medication Instructions Recorded Confirmed pantoprazole 40 mg tablet,delayed 40 mg PO DAILY 12/02/21 11/02/23 release lisinopril 10 mg tablet 10 mg PO DAILY 11/02/23 11/02/23 Allergies Allergy/AdvReac Type Severity Reaction Status Date / Time Pertussis Vaccines Allergy Severe Dyspnea / Verified 11/02/23 08:46 SOB Review of Systems Review of Systems: CONSTITUTIONAL: Denies fever, chills, or sweats. EYES: Denies visual changes, redness, or discharge. ENT: Denies rhinorrhea, congestion . Reports sore throat. Denies otalgia. CARDIOVASCULAR: Denies chest pain, palpitations, or edema. RESPIRATORY: Denies cough or dyspnea. GENITOURINARY: Denies dysuria or hematuria. SKIN: Denies rash or itching. MUSCULOSKELETAL: Denies back pain, joint pain, or myalgia. NEUROLOGIC: Denies headache, numbness, or weakness. PSYCHIATRIC: Denies anxiety or depression. All other systems reviewed are negative, except as documented in HPI. [facility] Past Medical History Medical History Chronic back pain Surgical History Surgical History History of tonsillectomy Family History Family History Mother Family history non-contributory Social History Social History Second hand tobacco smoke exposure: Yes Alcohol intake: never Substance use: current Substance use type: marijuana Living arrangements: with family Gender identity (if verbalized by the patient): Male Sexual Orientation (if Verbalized by the Patient): Straight or Heterosexual Spiritual care concerns: No Comments At time of signature, agree with nursing past medical, surgical, social and family history. There is no relevant family history pertinent to the presenting complaint. Exam Narrative: GENERAL: This is a well-nourished, well-developed patient, in no apparent distress. HEAD: normocephalic, atraumatic. EYES: PERRL. Sclera clear/white. Vision is grossly intact. EARS: External ears normal, auditory canals clear and without drainage, TMs normal without perforation. Hearing grossly intact. NOSE: External nose normal with no obvious nasal discharge, nares without redness, no rhinorrhea. THROAT: Mucous membranes moist, posterior pharynx erythematous with mild swelling. No exudates. NECK: Neck supple, non-tender without lymphadenopathy, masses or thyromegaly. CARDIOVASCULAR: Regular rate and rhythm without murmurs, gallops, or rubs. RESPIRATORY: Clear to auscultation. Breath sounds equal bilaterally. No wheezes, rales, or rhonchi. SKIN: warm, Dry, intact with no suspicious lesions or rash, good texture and turgor. NEURO: awake, alert, and oriented to person, place and time. There were no obvious focal neurologic abnormalities. EXTREMITIES: No joint tenderness, effusion, or edema noted. Course Course Level of Care: Express Care Visit Vital Signs Vital signs: Vital Signs Temperature 37.7 C H 11/02/23 09:24 Pulse Rate 87 11/02/23 09:24 Respiratory Rate 16 11/02/23 09:24 Blood Pressure 133/72 11/02/23 09:24 Pulse Oximetry 99 11/02/23 09:24 Oxygen Delivery Room Air 11/02/23 09:24 Temperature 37.7 C H 11/02/23 09:24 Pulse Rate 87 02
== END 2023-11-02 09:47 | disposition home or self-care (01) ==
PROVIDERS: Emergency Provider Nurse Practitioner Family; PCP Physician Assistant
DX: J02.0 Streptococcal pharyngitis (principal); F12.90 Cannabis use, unspecified, uncomplicated
CPT/HCPCS: 87880; 99213; G0463

== ENCOUNTER 2023-11-12 12:58 | Emergency (ER) | payer OTHER, SELFPAY ==
--- NOTE | ~2023-11-12 | US_ITS ---
EXAMINATION: US scrotum doppler DATE: 11/12/2023 16:20 INDICATION: concern torsion . TECHNIQUE: Grayscale and Doppler ultrasound images of the testes were obtained. COMPARISON: None. FINDINGS: The right testis measures 5.6 x 2.6 x 2.8 cm. The left testis measures 4.8 x 2.3 x 3.1 cm. No testicular mass. There is normal vascular flow to both testes. The right epididymis is normal with normal vascular flow. The left epididymis is normal with normal vascular flow. There is no varicocel e. Trace right and small left hydroceles. IMPRESSION: Trace right and small left hydroceles. No sonographic evidence of torsion. Reviewed, dictated and finalized at location K. STRAL SURVEYOR
[2023-11-12 13:04] VITALS: BP 130/70; PULSE 82; RESP 18; TEMP 36.4; O2SAT 99
[2023-11-12 14:09] LABS: Appearance Urine Clear (Clear); Bilirubin Urine Negative (Negative); Blood Urine Negative (Negative); Color Urine Yellow (Yellow); Glucose Urine UA Negative (Negative); Ketones Urine Negative (Negative); Leukocyte Esterase Ur Negative LEU/UL (Negative); Nitrate Urine Negative (Negative); Protein Urine Negative (Negative); Specific Grav Ur 1.016 (1.001-1.035); Urobilinogen Urine 0.2 mg/dL (<2.0); pH Urine 7.5 (5.0-9.0)
[2023-11-12 14:10] LABS: Add Urine Microscopic? NO
--- NOTE | 2023-11-12 14:43 | ED.GENADULT ---
HPI - General Adult General Chief complaint: Urogenital-Male Stated complaint: testicular pain Time Seen by Provider: 11/12/23 13:16 History of Present Illness HPI narrative: 33-year-old male presenting to the emergency department for evaluation of left testicular pain. Patient states the course of the last 3 weeks he has had increased testicular ache. Patient denies any falls or injury. Patient denies any swelling of the left testicle. Patient denies any prior history of epididymitis torsion. Related Data Home Medications Medication Instructions Recorded Confirmed pantoprazole 40 mg tablet,delayed 40 mg PO DAILY 12/02/21 11/02/23 release lisinopril 10 mg tablet 10 mg PO DAILY 11/02/23 11/02/23 Allergies Allergy/AdvReac Type Severity Reaction Status Date / Time Pertussis Vaccines Allergy Severe Dyspnea / Verified 11/12/23 12:58 SOB Review of Systems Review of Systems: All systems reviewed & are unremarkable except as noted in HPI and below PMFSH Past Medical History Medical History Chronic back pain Surgical History Surgical History History of tonsillectomy Family History Family History Mother Family history non-contributory Social History Social History Second hand tobacco smoke exposure: Yes Alcohol intake: never Substance use: current Substance use type: marijuana Living arrangements: with family Gender identity (if verbalized by the patient): Male Sexual Orientation (if Verbalized by the Patient): Straight or Heterosexual Spiritual care concerns: No Exam Narrative: APPEARANCE: Well appearing, no pain, no distress, well-nourished. HEAD: normocephalic, atraumatic. EYES: PERRLA/EOMI, conjunctivae clear. NOSE: Normal no drainage NECK: Supple. No adenopathy, no masses. RESPIRATORY: Airway patent, respirations nonlabored. Clear to auscultation bilaterally, no rales, rhonchi, wheezing. CARDIOVASCULAR: Regular rate and rhythm without murmurs rubs or gallops. ABDOMINAL: Soft, nontender, nondistended, normal bowel sounds Genital exam: Left testicular tenderness with no edema or erythema MUSCULOSKELETAL: Moves all extremities. Strength/ROM intact, No edema, No calf tenderness. NEURO: Alert. Cranial nerves II through XII intact. Grossly SKIN: Warm, dry. Normal Color Course Course Emergency Course: Patient's ultrasound showed evidence hydrocele. Patient was a bit on the results of the workup patient was encouraged to have close follow-up with Urology. Vital Signs Vital signs: Vital Signs Temperature 97.5 F L 11/12/23 13:04 Pulse Rate 82 11/12/23 13:04 Respiratory Rate 18 11/12/23 13:04 Blood Pressure 130/70 11/12/23 13:04 Pulse Oximetry 99 11/12/23 13:04 Oxygen Delivery Room Air 11/12/23 13:04 Temperature 97.8 F 11/12/23 17:40 Pulse Rate 88 11/12/23 17:40 Respiratory Rate 20 11/12/23 17:40 Blood Pressure 142/90 H 11/12/23 17:40 Pulse Oximetry 97 11/12/23 17:40 Oxygen Delivery Room Air 11/12/23 13:04 Medical Decision Making MDM Narrative Medical decision making narrative: 33-year-old male presenting to the emergency department for evaluation of left testicular pain. Patient was negative for Trichomonas gonorrhea and chlamydia. Ultrasound was positive for hydrocele but was negative for torsion. Patient was encouraged of close follow-up with Urology. Patient was advised to take Tylenol and ibuprofen for pain control. Differential Diagnosis Differential Diagnosis: Variceal, hydrocele, epididymitis, torsion, urinary tract infection Vital Signs Vital Signs: Vital Signs Temperature 97.5 F L 11/12/23 13:04 Pulse Rate 82 11/12/23 13:04 Respiratory Rate 18 11/12/23 13
[2023-11-12 15:06] LABS: Trichomonas Vag PCR NOT DETECTED (NOT DETECTE)
[2023-11-12 15:31] LABS: Chlamydia trachomatis NOT DETECTED (NOT DETECTE); Neisseria gonorrhoeae PCR NOT DETECTED (NOT DETECTE)
[2023-11-12 15:42] VITALS: BP 132/63; PULSE 77; RESP 19; TEMP 36.6; O2SAT 98
[2023-11-12 17:40] VITALS: BP 142/90; PULSE 88; RESP 20; TEMP 36.6; O2SAT 97
== END 2023-11-12 17:52 | disposition home or self-care (01) ==
PROVIDERS: Emergency Provider Emergency Medicine; PCP Physician Assistant
DX: N43.3 Hydrocele, unspecified (principal); Z77.22 Contact with and (suspected) exposure to environmental tobacco smoke (acute) (chronic); Z11.3 Encounter for screening for infections with a predominantly sexual mode of transmission
CPT/HCPCS: 76870; 81003; 87491; 87591; 87661; 93976; 99284

== ENCOUNTER 2023-12-05 09:24 | Outpatient (CLI) | payer OTHER, SELFPAY ==
--- NOTE | ~2023-12-05 | US_ITS ---
EXAMINATION: US soft tissue abdomen DATE: 12/05/2023 10:26 INDICATION: Subcutaneous nodules at the right anterior abdominal wall TECHNIQUE: Multiple grayscale and Doppler ultrasound images of the region of concern at the right ant erior abdominal wall were obtained. COMPARISON: None FINDINGS/IMPRESSION: There is a 1.6 x 1.2 x 0.8 cm nodule and a 1.1 x 1.1 x 0.5 cm nodule at the 2 regions of concern. Bot h nodules are isoechoic with identical echotexture and internal echogenic septations as the surroundi ng subcutaneous fat which is most consistent with and statistically most likely to represent lipomas. Reviewed, dictated and finalized at location A.
== END 2023-12-05 09:25 | disposition home or self-care (01) ==
PROVIDERS: PCP Physician Assistant; Visit Provider Physician Assistant
DX: R22.2 Localized swelling, mass and lump, trunk (principal)
CPT/HCPCS: 76705

== ENCOUNTER 2024-01-02 16:42 | Emergency (ER) | payer OTHER, SELFPAY ==
[2024-01-02 16:48] VITALS: BP 134/74; PULSE 104; RESP 16; TEMP 37.2; O2SAT 97
--- NOTE | 2024-01-02 17:00 | ED.SKABFB ---
HPI - Skin/Abscess/Foreign Bdy General Chief complaint: Skin/Abscess/Foreign Body Stated complaint: irritation on left arm Time Seen by Provider: 01/02/24 16:43 Source: patient Mode of arrival: ambulatory Limitations: no limitations History of Present Illness HPI narrative: Brad is a 33-year-old male patient presenting to the clinic today with complaints of possible infection on his left arm after having a tattoo placed 1 week ago. He reports that he has developed some pain over the tattoo with mild redness and an open area that keeps draining blood. Denies any known fever or chills. Is tachycardic in the clinic today. Related Data Home Medications Medication Instructions Recorded Confirmed pantoprazole 40 mg tablet,delayed 40 mg PO DAILY 12/02/21 01/02/24 release lisinopril 10 mg tablet 10 mg PO DAILY 11/02/23 01/02/24 docusate sodium 100 mg capsule 100 mg PO DAILY 01/02/24 01/02/24 Allergies Allergy/AdvReac Type Severity Reaction Status Date / Time Pertussis Vaccines Allergy Severe Dyspnea / Verified 01/02/24 16:56 SOB Review of Systems Review of Systems: Pertinent positives per HPI. Patient denies any fever, chills, rash, headache, visual changes, dizziness, cough, runny nose, sore throat, shortness of breath, chest pain, palpitations, nausea, vomiting, diarrhea, constipation, abdominal pain, or any urinary issues. [facility] Past Medical History Medical History Chronic back pain Surgical History Surgical History History of tonsillectomy Family History Family History Mother Family history non-contributory Social History Social History Second hand tobacco smoke exposure: Yes Alcohol intake: never Substance use: current Substance use type: marijuana Living arrangements: with family Gender identity (if verbalized by the patient): Male Sexual Orientation (if Verbalized by the Patient): Straight or Heterosexual Spiritual care concerns: No Comments At the time of my signature, I reviewed and agree with the nursing past medical, surgical, social, and family history. There is no relevant family history pertinent to the patient complaint. Exam Narrative: General: Well-developed, well nourished, in no apparent distress Head: Normocephalic, atraumatic. Cardio: Regular rate and rhythm, s1 and s2 normal, no murmur appreciated. Resp: Clear to auscultation bilaterally, no rhonchi, rales, wheezing or rubs. Integumentary: [place], warm, and dry, small 0.5 cm open area to the middle of his tattoo to the left forearm with mild redness and induration, tender to palpation, no obvious drainage at this time Course Course Emergency Course: Portions of this record may have been created with voice recognition software. Level of Care: Express Care Visit Vital Signs Vital signs: Vital Signs Temperature 37.2 C 01/02/24 16:48 Pulse Rate 104 H 01/02/24 16:48 Respiratory Rate 16 01/02/24 16:48 Blood Pressure 134/74 01/02/24 16:48 Pulse Oximetry 97 01/02/24 16:48 Oxygen Delivery Room Air 01/02/24 16:48 Temperature 37.2 C 01/02/24 16:48 Pulse Rate 104 H 01/02/24 16:48 Respiratory Rate 16 01/02/24 16:48 Blood Pressure 134/74 01/02/24 16:48 Pulse Oximetry 97 01/02/24 16:48 Oxygen Delivery Room Air 01/02/24 16:48 Vital signs reviewed MDM - Skin/Abscess/Foreign Bdy MDM Narrative Medical decision making narrative: At the time of visit patient is resting comfortably on the exam table. Patient appears to be nontoxic. Plan: I suspect patient has a wound infection to the left forearm. Will send in prescription for doxycycline and mupirocin cream. Supportive measures were discussed with the patient and they voiced
== END 2024-01-02 17:07 | disposition home or self-care (01) ==
PROVIDERS: Emergency Provider Nurse Practitioner Family; PCP Physician Assistant
DX: L08.9 Local infection of the skin and subcutaneous tissue, unspecified (principal); F12.90 Cannabis use, unspecified, uncomplicated
CPT/HCPCS: 99213; G0463

== ENCOUNTER 2024-05-28 08:44 | Emergency (ER) | payer OTHER, SELFPAY ==
[2024-05-28 08:53] VITALS: BP 151/78; PULSE 87; RESP 18; TEMP 37.2; O2SAT 98
--- NOTE | 2024-05-28 09:11 | ED.URI ---
HPI - URI/Sore Throat General Chief Complaint: Upper Respiratory Infection Stated Complaint: Sore Throat Time Seen by Provider: 05/28/24 09:13 Source: patient and RN notes reviewed Mode of arrival: ambulatory Limitations: no limitations History of Present Illness HPI Narrative: 34-year-old male presents with concern for sore throat, left ear pain for 5 days. Reports he has been taking Mucinex Flonase without relief. He denies fever, aches, chills, sweats. Reports nasal congestion rhinorrhea. Denies cough MD elicited complaint: sore throat Related Data Home Medications Medication Instructions Recorded Confirmed pantoprazole 40 mg tablet,delayed 40 mg PO DAILY 12/02/21 05/28/24 release lisinopril 10 mg tablet 10 mg PO DAILY 11/02/23 05/28/24 Allergies Allergy/AdvReac Type Severity Reaction Status Date / Time Pertussis Vaccines Allergy Severe Dyspnea / Verified 05/28/24 08:49 SOB Review of Systems Review of Systems: CONSTITUTIONAL: Denies malaise, chills, sweats, or fever. EYES: Denies visual changes, redness, or discharge. ENT: Reports rhinorrhea, congestion, left otalgia and sore throat. CARDIOVASCULAR: Denies chest pain, palpitations, or edema. RESPIRATORY: Denies cough. Denies dyspnea. GASTROINTESTINAL: Denies abdominal pain, nausea, vomiting, diarrhea SKIN: Denies rash or itching. MUSCULOSKELETAL: Denies myalgia. NEUROLOGIC: Denies headache. All systems reviewed & are unremarkable except as noted in HPI and below PMFSH Past Medical History Medical History Chronic back pain Surgical History Surgical History History of tonsillectomy Family History Family History Mother Family history non-contributory Social History Social History Second hand tobacco smoke exposure: Yes Alcohol intake: never Substance use: current Substance use type: marijuana Living arrangements: with family Gender identity (if verbalized by the patient): Male Sexual Orientation (if Verbalized by the Patient): Straight or Heterosexual Spiritual care concerns: No Comments At time of signature, agree with nursing past medical, surgical, social and family history. There is no relevant family history pertinent to the presenting complaint Exam Narrative: GENERAL: Well-appearing, well-nourished, and in no acute distress. HEAD: Normocephalic EYES: PERRLA, conjunctivae clear ENT: Nares clear, clear discharge. Mucous membranes moist. TM pearly blunt with dull light reflex bilaterally; no tragal tenderness. Oropharynx erythematous without lesions. Tonsils not enlarged and without exudate, no drooling, no hoarseness, no trismus, uvula midline. NECK: Supple. No lymphadenopathy CHEST: Clear to auscultation, breath sounds equal. No wheezing, rhonchi, rales, or stridor. No respiratory distress, speaks in full sentences. HEART: Regular rate and rhythm. No murmur heard. SKIN: Warm, dry, no rash. NEURO: Alert and oriented x3. PSYCH: Normal mood and affect Course Course Emergency Course: Patient is aware of diagnosis, understands and agrees to treatment plan. Anticipatory guidance given. Patient agrees to follow-up as directed and is aware of reasons to seek care at the emergency department. Portions of this record may have been created with voice recognition software Level of Care: Express Care Visit Vital Signs Vital signs: Vital Signs Temperature 98.9 F 05/28/24 08:53 Pulse Rate 87 05/28/24 08:53 Respiratory Rate 18 05/28/24 08:53 Blood Pressure 151/78 H 05/28/24 08:53 Pulse Oximetry 98 05/28/24 08:53 Oxygen Delivery Room Air 05/28/24 08:53 Temperature 98.9 F 05/28/24 08:53 Pulse Rate 87 05/28/24 08:53 Respiratory Rate 18 05/28/24 08:5
[2024-05-28 09:21] LABS: EDSTREPNEGPOS1 Negative (Negative)
== END 2024-05-28 09:30 | disposition home or self-care (01) ==
PROVIDERS: Emergency Provider Nurse Practitioner; PCP Physician Assistant
DX: J06.9 Acute upper respiratory infection, unspecified (principal); F12.90 Cannabis use, unspecified, uncomplicated
CPT/HCPCS: 87081; 87880; 99213; G0463

== ENCOUNTER 2024-07-01 07:46 | Emergency (ER) | payer OTHER, SELFPAY ==
--- NOTE | ~2024-07-01 | US_ITS ---
EXAMINATION: US scrotum doppler DATE: 07/01/2024 09:20 INDICATION: Testicular pain. TECHNIQUE: Grayscale and Doppler ultrasound images of the testes were obtained. COMPARISON: Ultrasound 11/12/2023 FINDINGS: The right testis measures 5.5 x 2.5 x 3.4 cm. The left testis measures 5.2 x 2.7 x 3.2 cm. There is normal vascular flow to both testes. The right epididymis is normal with normal vascular tamara w. The left epididymis is normal with normal vascular flow. There is a small left hydrocele. IMPRESSION: 1. Small left hydrocele, stable from 11/12/2023. Reviewed, dictated and finalized at location A.
[2024-07-01 08:36] VITALS: BP 139/81; PULSE 96; TEMP 36.7; O2SAT 97
--- NOTE | 2024-07-01 09:07 | ED.GENADULT ---
HPI - General Adult General Chief complaint: Urogenital-Male Stated complaint: scrotal pain Time Seen by Provider: 07/01/24 08:39 History of Present Illness HPI narrative: 34-year-old male presents the emergency department for evaluation for recurrent testicular pain. Patient does have prior history of hydrocele and epididymitis. Patient states his pain has been worsening and extending up into his abdomen. Related Data Home Medications Medication Instructions Recorded Confirmed pantoprazole 40 mg tablet,delayed 40 mg PO DAILY 12/02/21 05/28/24 release lisinopril 10 mg tablet 10 mg PO DAILY 11/02/23 05/28/24 Allergies Allergy/AdvReac Type Severity Reaction Status Date / Time Pertussis Vaccines Allergy Severe Dyspnea / Verified 07/01/24 07:49 SOB Review of Systems Review of Systems: All systems reviewed & are unremarkable except as noted in HPI and below PMFSH Past Medical History Medical History Chronic back pain Surgical History Surgical History History of tonsillectomy Family History Family History Mother Family history non-contributory Social History Social History Second hand tobacco smoke exposure: Yes Alcohol intake: never Substance use: current Substance use type: marijuana Living arrangements: with family Gender identity (if verbalized by the patient): Male Sexual Orientation (if Verbalized by the Patient): Straight or Heterosexual Spiritual care concerns: No Exam Narrative: APPEARANCE: Well appearing, no pain, no distress, well-nourished. HEAD: normocephalic, atraumatic. EYES: PERRLA/EOMI, conjunctivae clear. NOSE: Normal no drainage NECK: Supple. No adenopathy, no masses. RESPIRATORY: Airway patent, respirations nonlabored. Clear to auscultation bilaterally, no rales, rhonchi, wheezing. CARDIOVASCULAR: Regular rate and rhythm without murmurs rubs or gallops. ABDOMINAL: Soft, nontender, nondistended, normal bowel sounds MUSCULOSKELETAL: Moves all extremities. Strength/ROM intact, No edema, No calf tenderness. NEURO: Alert. Cranial nerves II through XII intact. Grossly intact SKIN: Warm, dry. Normal Color Course Vital Signs Vital signs: Vital Signs Temperature 98.0 F 07/01/24 08:36 Pulse Rate 96 07/01/24 08:36 Blood Pressure 139/81 07/01/24 08:36 Pulse Oximetry 97 07/01/24 08:36 Temperature 98.0 F 07/01/24 08:36 Pulse Rate 96 07/01/24 08:36 Blood Pressure 139/81 07/01/24 08:36 Pulse Oximetry 97 07/01/24 08:36 Medical Decision Making MDM Narrative Medical decision making narrative: 34-year-old male presents to the emergency department for evaluation for testicular pain. Patient is afebrile with no leukocytosis and a stable hemoglobin. Patient has a normal INR no acute abnormalities on his CMP. Patient denies any urinary symptoms. Ultrasound was negative. Patient has a soft nontender abdomen. Patient does have a prior diagnosis of a hydrocele perhaps this is contributing to his tenderness. Patient was encouraged close follow-up with primary care physician along with Urology. All questions and concerns were addressed. Differential Diagnosis Differential Diagnosis: Torsion, epididymitis, hydrocele Vital Signs Vital Signs: Vital Signs Temperature 98.0 F 07/01/24 08:36 Pulse Rate 96 07/01/24 08:36 Blood Pressure 139/81 07/01/24 08:36 Pulse Oximetry 97 07/01/24 08:36 Temperature 98.0 F 07/01/24 08:36 Pulse Rate 96 07/01/24 08:36 Blood Pressure 139/81 07/01/24 08:36 Pulse Oximetry 97 07/01/24 08:36 Lab Data Lab results reviewed: Yes I reviewed the patient's lab results. 07/01/24 09:21 07/01/24 09:21 Labs: Lab
[2024-07-01 09:27] LABS: Basophils Percent Auto 0.4 % (0.2-1.2); Eosinophils Absolute Auto 0.2 K/mm3 (0-0.3); Hemoglobin 15.7 g/dL (14.0-18.0); Immature Granulocyte Absolute 0.01 K/mm3 (0.00-0.031); Immature Granulocyte Percent A 0.1 % (0-0.5); Lymphocytes Absolute Auto 1.84 K/mm3 (0.9-3.2); Lymphocytes Percent Auto 19.8 % (18.3-44.2); Mean Corpuscular HGB Conc 34.9 g/dl (32-36); Mean Corpuscular Hemoglobin 30.3 pg (26-34); Mean Corpuscular Volume 86.9 fl (80-100); Mean Platelet Volume 8.4 fl (7.4-10.4); Monocytes Absolute Auto 0.6 K/mm3 (0.1-0.6); Monocytes Percent Auto 6.7 % (2.6-8.5); Neutrophils Absolute Auto 6.6 K/mm3 (1.3-6.7); Platelet Count Result 312 k/mm3 (150-375); Red Blood Count 5.18 M/mm3 (4.6-6.20); White Blood Count 9.3 K/mm3 (4.5-10.0)
[2024-07-01 09:36] LABS: Potassium 4.2 mmol/L (3.4-5.0)
[2024-07-01 09:38] LABS: Partial Thromboplastin Time 28.9 Seconds (22.3-36.8); Prothrombin Time 13.6 Seconds (11.1-14.7)
[2024-07-01 09:45] LABS: Alanine Aminotransferase 31 U/L (6-50); Albumin Level 4.7 g/dL (3.5-5.1); Alkaline Phosphatase 65 U/L (38-126); Anion Gap 7 mmol/L (4-12); Aspartate Amino Transferase 30 U/L (17-59); Bilirubin,Total 0.7 mg/dL (0.2-1.3); Blood Urea Nitrogen 22 mg/dL (9-20); Calcium 9.6 mg/dL (8.4-10.2); Carbon Dioxide 27 mmol/L (22-30); Chloride 103 mmol/L (98-107); Estimated CRCL calculation 108 ml/min; Estimated Glomerular Filt Rate > 60; Glucose 97 mg/dL (65-110); Lipase 52 U/L (23-300); Sodium 137 mmol/L (137-145)
== END 2024-07-01 10:18 | disposition home or self-care (01) ==
PROVIDERS: Emergency Provider Emergency Medicine; PCP Physician Assistant
DX: N50.812 Left testicular pain (principal); N43.3 Hydrocele, unspecified; Z77.22 Contact with and (suspected) exposure to environmental tobacco smoke (acute) (chronic)
CPT/HCPCS: 36415; 76870; 80053; 83605; 83690; 85025; 85610; 85730; 93976; 99284

== ENCOUNTER 2024-12-29 10:56 | Emergency (ER) | payer MEDICARE, SELFPAY ==
--- NOTE | 2024-12-29 10:58 | ED_ITS ---
HPI - Dental/Oral General Chief complaint: Dental/Oral Stated complaint: Dental Pain Time Seen by Provider: 12/29/24 10:58 Source: patient Mode of arrival: ambulatory Limitations: no limitations History of Present Illness HPI Narrative: Brad is a 34-year-old male patient presenting to the clinic today with complaints of dental pain. He reports he started having some pain on after eating either pizza or tacos to the left upper molar. Symptoms got worse last night and are now throbbing and causing him not to be able to sleep. Denies any fevers, chills, body aches. Tried to call the dentist. Has taken ibuprofen for his symptoms. Related Data Home Medications ?Medication ?Instructions ?Recorded ?Confirmed ?Last Taken ?Type pantoprazole 40 mg tablet,delayed 40 mg PO DAILY 12/02/21 05/28/24 Unknown History release lisinopril 10 mg tablet 10 mg PO DAILY 11/02/23 05/28/24 Unknown History hydrochlorothiazide 12.5 mg tablet mg 12/29/24 Unknown History Allergies Allergy/AdvReac Type Severity Reaction Status Date / Time Pertussis Vaccines Allergy Severe Dyspnea / Verified 12/29/24 10:58 SOB Review of Systems Review of Systems: Pertinent positives per HPI. Patient denies any fever, chills, rash, headache, visual changes, dizziness, cough, runny nose, sore throat, shortness of breath, chest pain, palpitations, nausea, vomiting, diarrhea, constipation, abdominal pain, or any urinary issues. PMFSH Past Medical History Medical History Chronic back pain Surgical History Surgical History History of tonsillectomy Family History Family History Mother Family history non-contributory Social History Social History Second hand tobacco smoke exposure: Yes Alcohol intake: never Substance use: current Substance use type: marijuana Living arrangements: with family Gender identity (if verbalized by the patient): Male Sexual Orientation (if Verbalized by the Patient): Straight or Heterosexual Spiritual care concerns: No Comments At the time of my signature, I reviewed and agree with the nursing past medical, surgical, social, and family history. There is no relevant family history pertinent to the patient complaint. Exam Narrative: General: Well-developed, well nourished, in no apparent distress Head: Normocephalic, atraumatic Eyes: Pupils equally round and reactive to light bilaterally, EOM intact, sclera and conjunctive clear, no discharge, lids normal Ears: TMs intact and clear, ear canals clear, no drainage, grossly hearing normal. Nose: Nares patent, no discharge, no inflammation, no sinus tenderness. Mouth: Oropharynx without lesions or masses, good dentition, MMM. Dental pain to 14. Neck: Supple, trachea midline, no enlargement of anterior or posterior cervical nodes, no thyroid masses or goiter palpable. Cardio: Regular rate and rhythm, s1 and s2 normal, no murmur appreciated. Resp: Clear to auscultation bilaterally anteriorly and posteriorly, no rhonchi, rales, wheezing or rubs Course Course Emergency Course: Portions of this record may have been created with voice recognition software. Level of Care: Express Care Visit Vital Signs Vital signs: Vital signs reviewed MDM - Dental/Oral MDM Narrative Medical decision making narrative: At the time of visit patient is resting comfortably on the exam table. Patient appears to be nontoxic. Plan: I suspect patient has dental pain to the #14 tooth. Prescription for amoxicillin was sent to the pharmacy. Supportive measures were discussed with the patient and they voiced understanding discharge instructions and agrees to treatment plan. Return precautions reviewed Differential Diagnosis Differential diagnosis: Likely gingival abscess, dental caries, toothache, d ental abscess, fracture of tooth and aphthous ulcer Discharge Plan Discharge Clinical Impression: Toothache Patient Disposition: Home Condition: Stable Instructions: Antibiotic Form, Toothache (ED) Additional Instructions: Take medications as prescribed-amoxicillin Increase fluids and stay well hydrated Take Tylenol/Motrin as needed for pain or fever May apply ice or gel to the affected area to help alleviate pain May apply heat or ice to the affected area to help alleviate pain Follow-up with your dentist as soon as possible Patient Language: Taiwanese Prescriptions: New amoxicillin 875 mg tablet 875 mg PO Q12H 10 Days Qty: 20 0RF No Action lisinopril 10 mg tablet 10 mg PO DAILY hydrochlorothiazide 12.5 mg tablet pantoprazole 40 mg tablet,delayed release (DR/EC) 40 mg PO DAILY Follow-up/Referrals: Chelle,HUE Shields [Primary Care Provider] - Time of Disposition: 11:11 Quality NIHSS Nursing Documentation ED NIHSS nursing documentation: reviewed/agree
[2024-12-29 11:06] VITALS: BP 130/76; PULSE 84; RESP 20; TEMP 36.9; O2SAT 98
== END 2024-12-29 11:15 | disposition home or self-care (01) ==
PROVIDERS: Emergency Provider Nurse Practitioner Family; PCP Physician Assistant
DX: K08.89 Other specified disorders of teeth and supporting structures (principal)
CPT/HCPCS: 99213; G0463

== ENCOUNTER 2025-07-12 07:51 | Emergency (ER) | payer MEDICARE, MEDICAID, SELFPAY ==
[2025-07-12] VITALS (8 sets, daily range): BP systolic 128–150; BP diastolic 73–101; PULSE 86–92; RESP 18–20; TEMP 36.6–36.9; O2SAT 96–98
--- NOTE | ~2025-07-12 | CT_ITS ---
Brad Corey EXAMINATION: CT abdomen pelvis w con COMPARISON: None HISTORY: LLQ pain TECHNIQUE: Axial images were obtained through the abdomen, pelvis post administration of IV contrast. Oral contrast was also administered. Coronal reconstruction images were obtained from the axial views. CT scan performed using dose optimization techniques including the following automated exposure control; adjustment of mA and/or kV; use of iterative reconstruction technique. Automatic exposure control was used to reduce radiation dose. Permanent radiation dose record is archived to PACS. FINDINGS: CT abdomen: LUNG BASES: The lung bases are clear. The visualized portions of the heart and pericardium are unremarkable. LIVER: Unremarkable, liver contours intact, no lesions. SPLEEN: Unremarkable. KIDNEYS: Right Kidney: Unremarkable. No calculi. No hydronephrosis. Left Kidney: Unremarkable. No calculi. No hydronephrosis ADRENAL GLANDS: Unremarkable. PANCREAS: Unremarkable. GALLBLADDER/BILIARY: Unremarkable. No biliary dilatation. STOMACH AND ESOPHAGUS: Visualized stomach and esophagus within normal limits. BOWEL/MESENTERY: There is mild thickening of the distal transverse and descending colon, there is no perforation or abscess. Appendix appears small. Mesentery normal. No dilated small bowel loops. ADENOPATHY/RETROPERITONEUM: No lymphadenopathy. AORTA/VASCULATURE: Normal caliber aorta. FREE FLUID OR FREE AIR: None. CT pelvis: SOLID ORGANS/REPRODUCTIVE: Unremarkable. BLADDER: Within normal limits. OSSEOUS STRUCTURES: No acute osseous abnormality.No suspicious lesions. OVERLYING SOFT TISSUES: Unremarkable. IMPRESSION: Mild colitis probably infectious in nature. Reviewed, dictated and finalized at location P.
--- OUTSIDE RECORDS SUMMARY | 2025-07-12 08:24 | XMS_ITS | Data Portability ---
[facility] Address [address] [place] [address] Care Team Providers Care Attendant Lodging Facilities Name Role Phone ALYSON DEAL Primary Care Provider Assessment Encounter Date Assessment Date Assessment LastModified by Organization Details LastModified Time 03/01/2025 03/01/2025 Pt will make nurse visit for lab work. [email or web address] Not available 03/03/2025 16:17:15 Plan of Treatment Reminders Order Date Submit Date Provider Last Modified By Organization Details Last Modified Time Details Appointments ANY 15 2025 02:30P M AD SWANN Not available Not available Not available Lab None recorded . Referral gastroen terologi st referral 2024 025 [email or web address] Ad Velázquez PA-C, [address] [facility], [place], [address], 03/21/2025 13:33:29 [email or web address] gologist referral 2023 024 [email or web address] Moy Guerrero MD, [address] [facility] , [address], [place], [address], 06/19/2024 08:07:29 Procedures None recorded . Surgeries None recorded . Imaging unlisted imaging order - US abdomen complete 2024 025 [email or web address] 1 [facility] [address] [place], [address], 06/21/2025 16:46:07 Medication Orders dicyclom ine 20 mg tablet 2024 025 [facility] #89369, [address] [place], [place], [id number], 03/14/2025 11:32:45 pantopra zole 40 mg tablet,d elayed release 2024 025 [facility] #57404, [address] [place] [address], [id number], 03/01/2025 17:13:01 hydrochl orothiaz tin 12.5 mg tablet 2024 [facility] #74241, [address] [place], [place], [id number], 03/01/2025 17:07:06 cycloben zaprine 5 mg tablet 2023 [facility] #07887, [address] [place], [place], [id number], 03/01/2025 16:00:53 docusate sodium 100 mg capsule 2023 024 [facility] #30938, [address] [place] [address], [id number], 06/05/2024 12:58:52 fluticas one propiona te 50 mcg/actu ation nasal spray,jeffrey spension 2023 024 [facility] #38315, [address] [place], [place], [id number], 01/06/2024 11:34:11 Patient TargetsNo targets recorded. 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 [facility] (Imaging) [address] [place] [address], [phone], 12/08/2023 14:25:18 12/08/19 24 12/05/2023 US, abdom en, compl ete No observ ation record ed. [facility] (Imaging) [address] [place] [address], [phone], 12/08/2023 10:41:00 07/01/20 24 07/01/2024 US, scrot um No observ ation record ed. [address], [address], 07/03/2024 09:59:33 04/11/20 25 04/10/2025 US, abdom en No observ ation record ed. [email or web address] Scheduling [address] [place], [address], 04/18/2025 16:05:25 05/21/20 25 05/16/2025 CT, abdom en, w/wo contr ast No observ ation record ed. [facility] Scheduling [address] [place], [address], 06/10/2025 15:37:50 Result Notes None recorded. Problems Name Problem SNOMED Code Status Onset Date Resolution Date Notes Provider Name and Address Organization Details Recorded Time Low back pain 615217476 Active 2019 Not Available [facility] 0 02:43:59 Gastroesophag eal reflux disease 447402073 Active 2019 HUE FLEMING Attn: Accounting ,[address] [place], [address] , [place] [facility] 2 14:25:26 Internal hemorrhoids 74638509 Active 2019 Not Available [facility] 0 02:43:59 Diverticulosi s of colon 679403247 Active 2019 HUE FLEMING Attn: Accounting ,[address] [facility], [place], [address] , [place] - [facility] 2 14:25:21 Constipation 61835635 Active 2020 HUE FLEMING Attn: Accounting ,[address] [place], [place], [address] [place] [address] , [place] [facility] 2 14:25:23 Generalized anxiety disorder 18629155 Active 2021 HUE FLEMING Attn: Accounting ,[address] [place], [address] , [place] [facility] 2 14:25:31 Blind left eye 466021442 Active 2021 HUE FLEMING Attn: Accounting ,[address] [place], [address] , [place] [facility] 2 14:25:55 Essential hypertension 66251122 Active 2023 HUE FLEMING Attn: Accounting ,[address] [place], [address] , [place] [facility] 4 14:59:52 Problem Notes None recorded. Procedures Surgical History Date Name Laterality Status Provider Name and Address Organization Details Recorded Time 06/25/20 20 primary transforaminal interbody fusion of joint of lumbar spine completed Ad Mix [place] 06/25/2020 15:18:32 tonsilectomy/adeno ids completed Leona Ruggiero LPN [place] - [facility] 05/09/2020 12:41:48 Imaging Results None recorded. Procedure Notes None recorded. Medical Equipment None Reported. Allergies Allergen ID Allergen Name Allergen Category Reaction Reaction Severity Criticality Documentation Date Start Date Code Code System Note Provider Name and Address Organization Details Recorded Time 170652 pertussis vaccine medicatio n Not available Not available Not available 04/11/2020 8080 RxNorm Adfred Mix [place] null, [place] - [facility] 0 15:38:18 488777 polyethyl khris glycol 3350 medicatio n diarrhea Not available Not available 06/21/2022 57180 7 RxNorm Emilie Saldaña LPN null, [place] - [facility] 2 10:11:55 Medications Name Sig Start Date Stop Date Status Note LastModified by Organization Details LastModified Time amoxicill in 500 mg capsule TAKE 1 CAPSULE BY MOUTH EVERY 12 HOURS FOR 10 DAYS 11/22 completed Not Available Not Available Not Available clonidine HCl 0.1 mg tablet TAKE 1 TABLET BY MOUTH DAILY 03/26 completed Not Available Not Available Not Available sulfasala zine 500 mg tablet Take 2 tablets 4 times a day by oral route for 30 days. 08/21 completed Not Available Not Available Not Available trazodone 50 mg tablet TAKE 1 TABLET BY MOUTH AT BEDTIME NEEDED FOR INSOMNIA 03/26 completed Not Available Not Available Not Available meloxicam 15 mg tablet Take 1 tablet every day by oral route. 03/01 completed Not Available Not Available Not Available Tubersol 5 tub. unit/0.1 mL intraderm al injection solution Administ er .1ml interder darling 10/18 completed Not Available Not Available Not Available acetamino phen 300 mg-codein e 30 mg tablet Take 1 tablet 4 times a day by oral route as needed. 05/09 completed Not Available Not Available Not Available amitripty line 50 mg tablet TAKE 1 TABLET BY MOUTH EVERY DAY AT BEDTIME 10/12 completed Not Available Not Available Not Available amoxicill in 875 mg tablet TAKE 1 TABLET BY MOUTH TWICE DAILY 03/01 completed Not Available Not Available Not Available famotidin e 20 mg tablet TAKE 1 TABLET BY MOUTH TWICE DAILY NEEDED 05/22 completed Not Available Not Available Not Available dicyclomi ne 20 mg tablet TAKE 1 TABLET BY MOUTH FOUR TIMES DAILY 2024 active Not Available Not Available Not Avai lable diazepam 2 mg tablet TAKE 1 TABLET BY MOUTH THREE TIMES DAILY NEEDED 10/01 completed Not Available Not Available Not Available cephalexi n 500 mg capsule TAKE 1 CAPSULE BY MOUTH EVERY 6 HOURS 03/29 completed Not Available Not Available Not Available pantopraz ole 40 mg tablet,de layed release TAKE 1 TABLET BY MOUTH EVERY DAY IN THE MORNING FOR STOMACH ACID OR REFLUX active Not Available Not Available No t Available naproxen sodium 550 mg tablet TAKE 1 TABLET BY MOUTH EVERY 12 HOURS 03/29 completed Not Available Not Available Not Available lisinopri l 10 mg tablet TAKE 1 TABLET BY MOUTH EVERY DAY IN THE MORNING active Not Available Not Available No t Available docusate sodium 100 mg capsule TAKE 1 CAPSULE BY MOUTH 1 TO 2 TIMES DAILY NEEDED FOR CONSTIPA TION active Not Available Not Available No t Available hydroxyzi ne HCl 25 mg tablet TAKE 1 TABLET BY MOUTH THREE TIMES DAILY DIRECTED 10/12 completed Not Available Not Available Not Available mupirocin 2 % topical ointment APPLY TOPICALL Y TO THE AFFECTED AREA TWICE DAILY FOR 7 DAYS 03/01 completed Not Available Not Available Not Available polyethyl khris glycol 3350 17 gram/dose oral powder TAKE 17 GRAMS BY MOUTH DIRECTED DAILY 06/21 completed patient states gave him diarrehe a every morning. Not Available Not Available Not Available hydroxyzi ne HCl 10 mg tablet 03/29 completed Not Available Not Available Not Available fluticaso ne propionat e 50 mcg/actua tion nasal spray,tulio pension SHAKE LIQUID AND USE 1 SPRAY IN EACH NOSTRIL TWICE DAILY DIRECTED active Not Available Not Available No t Available doxycycli ne hyclate 100 mg tablet TAKE 1 TABLET BY MOUTH TWICE DAILY FOR 7 DAYS 02/01 completed Not Available Not Available Not Available diazepam 5 mg tablet TAKE 1 TABLET BY MOUTH TWICE DAILY 03/26 completed Not Available Not Available Not Available cyclobenz aprine 5 mg tablet TAKE 1 TABLET BY MOUTH TWICE DAILY FOR 14 DAYS NEEDED FOR MUSCLE SPASM 03/01 completed Not Available Not Available Not Available hydrocodo ne 5 mg-ibupro fen 200 mg tablet TAKE 1 TABLET BY MOUTH EVERY 4-6 HOURS NEEDED FOR PAIN active Not Available Not Available No t Available pregabali n 100 mg capsule TAKE 1 CAPSULE BY MOUTH TWICE DAILY 03/26 completed Not Available Not Available Not Available hydrochlo rothiazid e 12.5 mg tablet TAKE 1 TABLET BY MOUTH EVERY DAY IN THE MORNING FOR HIGH BLOOD PRESSURE active Not Available Not Available No t Available Sudogest 12-hour 120 mg tablet,ex tended release TAKE 1 TABLET BY MOUTH EVERY 12 HOURS NEEDED FOR NASAL CONGESTI ON 03/01 completed Not Available Not Available Not Available peg 3350 240 gram-elec trolytes 22.72 gram-6.72 g-5.84 g powdr for soln Beginnin g at 5:00 PM the night before the colonosc opy, drink 8 ounces every 15 minutes until gone. 07/21 completed Not Available Not Available Not Available Daily Fiber 2 mg, taking 4 tabs by mouth with every meal. 10/12 completed Not Available Not Available Not Available Metamucil 3.4 gram/5.4 gram oral powder Week 1: Take 1 teaspoon mixed in water by mouth daily Week 2: Take 2 teaspoon s mixed in water by mouth daily Week 3 and afterwar ds: Take 1 Tablespo on mixed in water by mouth daily 09/01 completed Not Available Not Available Not Available Vitals Date Recorded Respiratory rate Heart rate Provider N shelley and Address Organization Details Last Updated DateTime 01/06/2024 18 /min 90 /min HUE FLEMING Attn: Accounting,[address] [place], [address], [facility] 01/06/2024 13:38:44 Date Recorded Body height Body mass index (BMI) Body weight Oxygen saturation Oxygen saturation in Arterial blood by Pulse oximetry Heart rate Systolic And Diastolic Provider Name and Address Organization Details Last Updated DateTime 4 175.26 cm 28.9 kg/m2 95233.1 g 97 % 97 % 104 /min 124/82 mm[Hg] Yoli Mcgee MA [facility] 4 10:51:22 Date Recorded Body height Body mass index (BMI) Body weight Oxygen saturation Oxygen saturation in Arterial blood by Pulse oximetry Heart rate Respiratory rate Systolic And Diastolic Provider Name and Address Organization Details Last Updated DateTime 5 175.26 cm 28.5 kg/m2 62984.3 3 g 97 % 97 % 88 /min 16 /min 131/79 mm[Hg] Marilyn Dong MA [facility] 5 16:49:38 Date Recorded Body height Body mass index (BMI) Body weight Heart rate Body temperature Systolic And Diastolic Provider Name and Address Organization Details Last Updated DateTime 5 175.26 cm 28.2 kg/m2 87672.2 2 g 88 /min 97.2 [degF] 113/79 mm[Hg] Yoli Marie [facility] 5 11:17:03 Date Recorded Body height Body mass index (BMI) Body weight Oxygen saturation Oxygen saturation in Arterial blood by Pulse oximetry Heart rate Respiratory rate Systolic And Diastolic Provider Name and Address Organization Details Last Updated DateTime 4 175.26 cm 29.5 kg/m2 75290.4 7 g 98 % 98 % 83 /min 16 /min 120/84 mm[Hg] Marilyn Dong MA [facility] 4 12:42:38 Date Recorded Body height Body mass index (BMI) Body weight Oxygen saturation Oxygen saturation in Arterial blood by Pulse oximetry Heart rate Respiratory rate Systolic And Diastolic Provider Name and Address Organization Details Last Updated DateTime 4 175.26 cm 29.6 kg/m2 05784.8 7 g 98 % 98 % 99 /min 16 /min 116/77 mm[Hg] Leila Cabrera MA [facility] 4 12:51:30 Social History Question Answer Notes LastModified by Organizat ion Details LastModified Time Tobacco Smoking Status Former Smoker Quit Sep 2018 Marijuana -Daily CANDI Sol, [facility] 10/01/2020 14:21:03 Do You Have An Advance Directive? No Information not available 10/01/2020 Are You Blind Or Do You Have Difficulty Seeing? No Information not available 03/10/2021 What Is Your Level Of Caffeine Consumption? Moderate Information not available 10/01/2020 How Much Tobacco Do You Chew? None Information not available 03/13/2020 In The 14 Days Before Symptom Onset, Have You Had Close Contact With A Laboratory-confir med COVID-19 While That Case Was Ill? No Information not available 03/10/2021 In The 14 Days Before Symptom Onset, Have You Had Close Contact With A Person Who Is Under Investigation For COVID-19 While That Person Was Ill? No Information not available 03/10/2021 Have You Been To An Area Known To Be High Risk For COVID-19? No Information not available 03/10/2021 Are You Deaf Or Do You Have Serious Difficulty Hearing? No Information not available 03/10/2021 What Type Of Diet Are You Following? REGULAR High Fiber Information not available 10/01/2020 Which Illicit Or Recreational Drugs Have You Used? None Information not available 10/01/2020 Education 12 Information no t available 10/01/2020 Are There Any Guns Present In Your Home? No Information not available 03/10/2021 Hard Of Hearing Or Deaf In One Or Both Ears? Yes Information not available 04/11/2020 Legally Blind In One Or Both Eyes? No [email or web address] Information no t available 05/09/2020 Live Alone Or With Others? With Others Information not available 10/01/2020 Do You Have A High School Diploma Or Higher Education? Yes Information not available 03/10/2021 Do You Sometimes Have To Miss Your Medical Appointments Due To Difficult Getting Transportation? No Information not available 03/10/2021 Do You Feel Unfairly Treated Due To Things Such As Race, Age, Gender, Disability Or Some Other Reason? No Information not available 03/10/2021 Do You Feel Physically And Emotionally Safe While Living At Home? Yes Information not available 03/10/2021 Do You Feel Physically And Emotionally Safe In Your Neighborhood Or Other Public Places? Yes Information not available 03/10/2021 Do You Have A Medical Power Of Hospitality Internship? No [email or web address] Information not available 06/21/2022 What Was The Date Of Your Most Recent Tobacco Screening? 03/14/2025 Information not available 03/14/2025 How Many Children Do You Have? 2 Information not available 10/01/2020 Do You Use Protection During Sex? Usually Information not available 03/10/2021 What Is Your Relationship Status? Information not available 03/10/2021 Do You Use Your Seat Belt Or Car Seat Routinely? Yes Information not available 03/10/2021 Are You Sexually Active? Yes Information not available 03/10/2021 Do You Have Smoke And Carbon Monoxide Detectors In Your Home? Yes Information not available 03/10/2021 At What Age Did You Start Smoking Tobacco? 16 Information not available 03/13/2020 Are You Passively Exposed To Smoke? No Information no t available 10/01/2020 How Much Tobacco Do You Smoke? No Information not available 05/14/2020 General Stress Level Medium Information not available 05/14/2020 Do You Use Sunscreen Routinely? Yes Information not available 03/10/2021 Has Tobacco Cessation Counseling Been Provided? No Information not available 12/03/2020 On What Date Was Tobacco Cessation Counseling Provided? 03/14/2025 Information not available 03/14/2025 Sex: Male Functional Status Question Answer Note LastModified by Organizat ion Details LastModified Time Do you use any illicit or recreational drugs? Yes Marijuana Information not available 12/03/2020 Do you or have you ever used any other forms of tobacco or nicotine? No Information not available 12/03/2020 What is your level of alcohol consumption? None Information not available 10/01/2020 Do you or have you ever used smokeless tobacco? Never used smokeless tobacco Information not available 03/13/2020 Are you currently employed? No Information not available 10/01/2020 Are you able to care for yourself independently? Yes Information not available 10/01/2020 What is your occupation? unemployed Information not available 10/01/2020 Do you or have you ever used e-cigarettes or vape? Never used electronic cigarettes Information not available 03/13/2020 What is your exercise level? None Information not available 05/14/2020 Mental Status Question Answer Note LastModified by Organization D etails LastModified Time Do you feel stressed (tense, restless, nervous, or anxious, or unable to sleep at night)? [id number] Information not available 03/10/2021 Family History Relationship Description Onset Age of this Age Resolved Age Notes LastModified by Organization Details LastModified Time Father No current problems or disability [email or web address] Not available 11:45:39 Mother No current problems or disability [email or web address] Not available 11:45:39 Sister Cyclical vomiting syndrome rloar Not available 2019 12:54:16 Medical History Condition Response Coronary Artery Disease N Other N High Blood Pressure N Atrial Fibrillation N Thyroid Problems N Kidney or Bladder Problems N GI Problems N Depression N COPD N Blood Clots N Skin Problems N Eating Disorder N Anemia N Heart Attack ([place]) N Anxiety Disorder Y Diabetes N Muscle, Joint, or Bone Problems N Seizures/Epilepsy N Acid Reflux (GERD) N Cancer N Stroke N Asthma N Allergies N ADHD N Substance Abuse N High Cholesterol N Hepatitis N Liver Disease N Schizophrenia N Headaches N Heart Failure N Osteoporosis N Immunizations Vaccine Type Date Status Note Provider Nam e and Address Organization Details Recorded Time DTP 8 completed Not Available [facility] 03/01/2025 16:47:40 OPV, trivalent 8 completed Not Available [facility] 03/01/2025 16:47:40 OPV, trivalent 0 completed Not Available [facility] 03/01/2025 16:47:40 DT (pediatric) 0 completed Not Available [facility] 03/01/2025 16:47:40 OPV, trivalent 0 completed Not Available [facility] 03/01/2025 16:47:40 MMR 0 completed Not Available [facility] 03/01/2025 16:47:40 DT (pediatric) 0 completed Not Available [facility] 03/01/2025 16:47:40 Hib, unspecified formulation 1 completed Not Available [facility] 03/01/2025 16:47:40 MMR 3 completed Not Available [facility] 03/01/2025 16:47:40 OPV, trivalent 3 completed Not Available [facility] 03/01/2025 16:47:40 DT (pediatric) 3 completed Not Available [facility] 03/01/2025 16:47:40 Hep B, adolescent or pediatric 8 completed Not Available [facility] 03/01/2025 16:47:40 Hep B, adolescent or pediatric 8 completed Not Available [facility] 03/01/2025 16:47:40 Hep B, adolescent or pediatric 8 completed Not Available [facility] 03/01/2025 16:47:40 Td (adult), 2 Lf tetanus toxoid, preservative free, adsorbed 8 completed Not Available [facility] 03/01/2025 16:47:40 Past Encounters Encounter ID Performer Location Encounter Start Date Encounter Closed Date Diagnosis/Indication Diagnosis SNOMED-CT Code Diagnosis ICD10 Code Diagnosis IMO Codes Diagnosis Note [id number] Irma Christianson MD [facility] [address] [place] [address] 02/01/2020 09:39:08 02/04/2020 10:53:24 Acute low back pain 841024448 M54.5 [id number] Irma Christianson MD [facility] [address] [place] [address] 03/13/2020 11:52:53 03/17/2020 15:31:43 Acute low back pain 226734603 M54.5 Patient is continuing to see the chiropract or for the pain in his back. Awaiting reports of x ray results. [id number] Irma Christianson MD [facility] [address] [place] [address] 04/11/2020 09:44:12 04/14/2020 09:58:20 Lumbar spondylosis 623840184 M47.896 Patient has an appointmen t scheduled at [place] for April 20. [id number] JOSE GUADALUPE COMBS NP [facility] [address] [place] [address] DAVID ANDERSON [address] 05/09/2020 12:34:56 05/12/2020 09:54:22 Colitis 36963340 K52.9 Multiple ED visits over the last 1 1/2 months Gastroesop hageal reflux disease 900463433 K21.9 Decrease caffeine [id number] Irma Christianson MD [facility] [address] [place] [address] 05/14/2020 11:40:41 05/19/2020 14:48:20 Degeneration of lumbar intervertebral disc 60355242 M51.36 [id number] JOSE GUADALUPE COMBS NP [facility] [address] [place] [address] 07/21/2020 12:12:19 07/22/2020 15:30:55 Internal hemorrhoids 90899537 K64.8 Miralax 17 grams daily Gastritis 0983799 K29.70 Diverticul osis of colon 975013542 K57.30 Colitis 82010702 K52.9 Multiple ED visits over the last 2 months. None since last visitPatho logy from colonoscop y: Focal active colitis at the ascending colonWill trial sulfasalaz ine [id number] Irma Christianson MD [facility] [address] [place] [address] 08/18/2020 09:18:59 08/19/2020 08:57:49 Low back pain 272843916 M54.5 no lasting pain relief after getting epidural steroids.. Patient had MRI 05-08-2020 [id number] JOSE GUADALUPE COMBS NP [facility] ts [address] [place] [address] 08/21/2020 12:14:55 08/21/2020 16:49:52 Gastritis 5485692 K29.70 Would like to continue pantoprazo le for the time being Constipation 54203064 K5 9.00 Doing well with Miralax and colaceEnco uraged high fiber foods [id number] Irma Christianson MD [facility] [address] [place] [address] 10/01/2020 09:00:55 10/07/2020 09:17:05 Spasm of back muscles 473025933 M62.830 Depression screening 171 521012 Z13.31 patient will be monitored and if still positive at his next visit, we can prescribe an SSRI. [id number] JOSE GUADALUPE COMBS NP [facility] [address] [place] [address] 11/19/2020 14:02:47 11/19/2020 15:16:59 Gastroesophageal reflux disease 246382245 K21.9 Decrease caffeineWe an from PPI, start famotidine Handout mailed to patient by [facility] Constipation 33224999 K5 9.00 Doing well with Miralax and colaceEnco uraged high fiber foodsDiet review: daily fiber lowWill add metamucil [id number] Irma Christianson MD [facility] [address] [place] [address] 12/03/2020 08:11:37 12/08/2020 10:21:52 Chronic low back pain 796892397 M54.5 [id number] Irma Christianson MD [facility] [address] [place] [address] 03/10/2021 08:06:19 03/18/2021 11:31:24 Neuropathy 542961047 G62.9 saw neurosurge on who said back was ok; he prescribed lyrica for nerve damage, and since then the left leg goes numb, hurts to walk more than 5 feet, foot starts to tingle. scheduled for an EMG test to see why the left leg is numb and giving out.. Lying down in bed is the only thing that gives relief. Depression screening 171 515485 Z13.31 patient will be monitored and if still positive at his next visit, we can prescribe an SSRI. [id number] JOSE GUADALUPE COMBS NP [facility] ts [address] [place] [address] 05/22/2021 10:31:48 06/05/2021 10:22:23 Gastroesophageal reflux disease 882668762 K21.9 Will restart pantoprazo le 40 mg daily as he has had more heartburn with famotidine D/C famotidine Constipation [id number] K5 9.00 Doing well with Miralax and colace and fiber [id number] Ramírez Castaneda MD [facility] [address] [place] [address] 06/29/2021 08:13:35 07/01/2021 09:21:25 Osteoarthritis [id number] M19.90 has OA, will refill meds and send to PT... Gastroesop hageal reflux disease [id number] K21.9 refill meds... [id number] Mike pena MD [facility] [address] [place] [address] 09/01/2021 10:43:00 09/02/2021 10:27:32 Pain of right hip joint [id number] 67044 M25.551 x1 yrno relief with chiropract or or PTtakes valium BIDPEx- unable to perform FROM flexion/ex tension/ab duction due to pain, ambulates with cane, and walks on lateral aspect of R foot, does not plant foot heel to toe, unable to stand erect without assistance hip feels stuck like it should [facility], MRI nl showed arthritis of lumbar spine, EMG study nlstart with XRs bilatrefer to ortho after XR Depression screening 171 715339 Z13.31 PHQ 2GAD 7 [id number] Mike pena MD [facility] [address] [place] [address] 09/24/2021 10:21:28 09/25/2021 09:51:44 Pain of right hip joint [id number] 49981 M25.551 09/24/21:dis cussed nl XR results with ptwill refer to ortho for consult and imagingadv ised pt that I will not be filling diazepam and Dr. Castaneda will continue to taperwill send refill request to Dr. 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, EMG study nlstart with XRs bilatrefer to ortho after XR Depression screening 171 232783 Z13.31 PHQ 2 [id number] Mike pena MD [facility] [address] [place] [address] 03/26/2022 13:41:00 03/29/2022 12:14:10 Paresthesia of bilateral hands [id number] R20.2 x1 wkthrobbin g to bilateral forearms down to his hands, a/w numbness/t inglingNo trauma or injury, muscle weakness, difficulty grasping/h olding objects or decreased strengthwe nt to ED 2x, results nl- EKG, CBC, CMP, EGFR, told it was related to anxietysta rted hydroxyzin e w/o improvemen tPEx- sensation intact to bilateral arms w/ pin prick and rounded end of broken tongue depressor, cap refill <2 seconds, upper extremity reflexes 2+ bilaterall y, radial pulses 2+provided reassuranc e due to normal PEx, labs, and EKGdiscuss ed physical manifestat ions of uncontroll ed anxietyPat ient was advised to go to the ED for worsening signs or symptoms including chest pain, SOB, fever, or unable to keep down food or liquids. 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, states that he yells at his kids all daydenies financial strain or increased stresshas chronic hip pain and stomach painreport s has episodes of nerves being shot and wanting to crywas on valium in the past and had anxiety attack with taperingdi scussed physical manifestat ions of uncontroll ed anxietytri al amitriptyl ine for anxiety and numbness and tinglingc/ w hydroxyzin e PRN, helps calm him down but causes fatigueoff ered counseling , pt refused [id number] Mike pena MD [facility] [address] [place] [address] 03/29/2022 13:28:23 03/30/2022 10:23:57 Paresthesia of bilateral hands [id number] R20.2 03/29/22:re solvedrela sulaiman to anxiety, felt anxious picking his mom up from the airport which caused numbness sensation to his armsc/w medication s 03/26/22:x1 wkthrobbin g to bilateral forearms down to his hands, a/w numbness/t inglingNo trauma or injury, muscle weakness, difficulty grasping/h olding objects or decreased strengthwe nt to ED 2x, results nl- EKG, CBC, CMP, EGFR, told it was related to anxietysta rted hydroxyzin e w/o improvemen tPEx- sensation intact to bilateral arms w/ pin prick and rounded end of broken tongue depressor, cap refill <2 seconds, upper extremity reflexes 2+ bilaterall y, radial pulses 2+provided reassuranc e due to normal PEx, labs, and EKGdiscuss ed physical manifestat ions of uncontroll ed anxietyPat ient was advised to go to the ED for worsening signs or symptoms including chest pain, SOB, fever, or unable to keep down food or liquids. 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, states that he yells at his kids all daydenies financial strain or increased stresshas chronic hip pain and stomach painreport s has episodes of nerves being shot and wanting to crywas on valium in the past and had anxiety attack with taperingdi scussed physical manifestat ions of uncontroll ed anxietytri al amitriptyl ine for anxiety and numbness and tinglingc/ w hydroxyzin e PRN, helps calm him down but causes fatigueoff ered counseling , pt refused Adult heal th examination [id number] Z00.00 foster care physicalbl ind in L eye and decreased hearing- reports he had hearing screen by the state 1 yr agoPEx- nlcomplete d [facility] physical exam formTB skin in office, f/u in 2 days for readingsob bennett Dia at pharmacy [facility] is screening [id number] Z11.1 [id number] Maritza Johnson DO [facility] [address] [place] [address] 06/21/2022 09:50:41 08/21/2022 14:56:00 Gastroesophageal reflux disease 650875949 K21.9 symptoms managed on pantoprazo le, has just joana without RX for last 2 months Constipation 52067860 K5 9.00 Doing well with colace and fiber. [id number] Maritza Johnson DO [facility] [address] [place] [address] 02/09/2023 09:48:55 04/04/2023 09:58:21 Gastroesophageal reflux disease 807814504 K21.9 stable on pantoprazo le; has enough refills currently. Constipation 70197850 K5 9.00 improved with BID colace. Possible patient is taking too much fiber. Instructed to taper back and see if symptoms improve. [id number] HUE FLEMING [facility] [address] [place] [address] 10/12/2023 14:43:56 10/12/2023 15:24:26 Obesity 228185083 E66.9 discussed increasing exercise and healthier food options, high protein, low fat dietroutin e labs Elevated blood-pressure reading without diagnosis of hypertension 848125561 R03.0 BP 153/75, 140/80thum ping in chest and behind ears x1 yrstart lisinopril 10f/u in 2 wks for BP check Lipoma of trunk 95397396 01 06397 D17.1 unknown durationPE x- 1 cm nodular lipoma to R sided abdomen, non-TTP without erythema, no hernia presentrea ssured pt Depression screening 171 771920 Z13.31 PHQ 0 Overweight 495463245 E66 .3 BMI 29.1 [id number] Mike pena MD [facility] [address] [place] [address] 10/26/2023 09:48:27 10/27/2023 14:49:39 Depression screening 848698617 Z13.31 PHQ 0 Essential hypertension 47683943 I10 10/26/23: BP in office 122/78BP at home 120-150s/7 0s-820p441 /94- 10 PM last night, went to EDtaking lisinopril 10 mg at 6 AMc/w checking BP, if BP >130/80, take another dose of lisinopril 10 mgcall tomorrow morning with BP numbers 10/12/23:BP 153/75, 140/80thum ping in chest and behind ears x1 yrstart lisinopril 10f/u in 2 wks for BP check [id number] Mike pena MD [facility] [address] [place] [address] 11/22/2023 16:46:39 11/22/2023 17:22:53 Essential hypertension 13758664 I10 11/22/23: BP 124/82, c/w lisinopril 10 10/26/23: BP in office 122/78BP at home 120-150s/7 0s-282g565 /94- 10 PM last night, went to EDtaking lisinopril 10 mg at 6 AMc/w checking BP, if BP >130/80, take another dose of lisinopril 10 mgcall tomorrow morning with BP numbers 10/12/23:BP 153/75, 140/80thum ping in chest and behind ears x1 yrstart lisinopril 10f/u in 2 wks for BP check Skin nodule 85297281 R22 .9 c/o 2 bumps to R side of abdomennon -palpatedr eassured pt, most likely adipose tissuept requesting imaging, ordered US abd wall [id number] Mike pena MD [facility] [address] [place] [address] 01/06/2024 10:44:13 01/06/2024 11:31:48 Essential hypertension 35590270 I10 01/06/24: BP 124/82, c/w HCTZ 12.5 12/13/23: cough with lisinopril , trial HCTZ 11/22/23: BP 124/82, c/w lisinopril 10 10/26/23: BP in office 122/78BP at home 120-150s/7 0s-805s113 /94- 10 PM last night, went to EDtaking lisinopril 10 mg at 6 AMc/w checking BP, if BP >130/80, take another dose of lisinopril 10 mgcall tomorrow morning with BP numbers 10/12/23:BP 153/75, 140/80thum ping in chest and behind ears x1 yrstart lisinopril 10f/u in 2 wks for BP check Viral uppe r respiratory tract infection 822105404 J06.9 x4 dayssore throat, congestion , L ear paintaking ibuprofen w/o reliefon doxycyclin e for skin infectiond aughter with similar sxPEx- middle ear fluid bilaterall y, otherise nltrial flonase and mucinex - Drink lots of fluids, water, gatorade. - Run a cool-mist humidifier in your room at night. - For sore throat, gargle warm salt water. - Get extra rest and do not over-exert yourself. - Do not mix multiple medication s with similar ingredient s (for instance Theraflu Non-drowsy and Tylenol Sinus). Doubling up on acetaminop hen and/or decongesta nts such as pseudephed rine can be dangerous. - Robitussin DM at bed time only (if cough keeps you awake) (and if not or on SSRI antidepres sants. [id number] Jorge A Kebede MD [facility] [address] [place] [address] 06/05/2024 12:39:51 06/05/2024 12:59:47 Middle ear effusion 3082391002 H74.8X9 chronicsta melissa that his ears bother him all the time, but has flares of throbbing paintakin g flonase, encouraged to take antihistam mary dailyPEx- middle ear fluid bilaterall y, L>Rdiscuss ed with pt at length no indication for abx w/o infectionr efer to ENT for chronic effusion Constipation 21676915 K5 9.00 refill Depression screening 171 169610 Z13.31 PHQ 0 [id number] Jorge A Kebede MD [facility] [address] [place] [address] 07/17/2024 12:40:46 07/17/2024 13:07:51 Spasm 81158769 R25.2 trial low dose flexeril for abd muscle spam Strain of abdominal muscle 495832045 S39.011A x3 wkspressur e/spasm to mid L sided abdomenno trauma or injuryno GI symptomsPE x- nlmost likely abd muscle strainstre tch, heating pad, avoid ab work for a couple days Depression screening 171 Z13.31 PHQ 0 [id number] Jorge A Kebede MD [facility] [address] [place] [address] 03/01/2025 16:45:42 03/01/2025 17:19:10 Essential hypertension 68571002 I10 03/01/25: BP 131/79 01/06/24: BP 124/82, c/w HCTZ 12.5 12/13/23: cough with lisinopril , trial HCTZ 11/22/23: BP 124/82, c/w lisinopril 10 10/26/23: BP in office 122/78BP at home 120-150s/7 0s-263h843 /94- 10 PM [facility] AMc/w checking BP, if BP >130/80, take another dose of lisinopril 10 mgcall tomorrow morning with BP numbers 10/12/23:BP 153/75, 140/80thum ping in chest and behind ears x1 yrstart lisinopril 10f/u in 2 wks for BP check Gastroesop hageal reflux disease without esophagitis 686801783 K21.9 087252 refill Screening for malignant neoplasm of colon 457008934 Z12.11 342542 h/o polyps Depression screening 171 129857 Z13.31 8057287 PHQ 0 Multiple skin tags 62312 7009 L91.8 [id number] to base of penile shaftreass ured ptdenies Derm referral for removal at this time Overweight 359785064 E66 .3 BMI 28.5 [id number] Merlin Loving DO [facility] [address] [place] [address] 03/14/2025 11:09:18 03/14/2025 12:23:31 Upper abdominal pain 22279263 R10.10 7110103 Dicyclomin e PRN for pain/spasm s. Await US results Screening for malignant neoplasm of colon 320947858 Z12.11 0125239 Prior colonoscop y 2019 with acute colitis and hyperplast ic polyp. Next colonoscop y at screening age of [age] years old. Health Concerns Section Related Observation LastModified by Organization Detai ls LastModified Time None Recorded Concern Status LastModified by Organization Details LastModified Time None Recorded Advance Directives Directive N: Payers Insurance Date Sequence Insurance Name Policy Number Policy Velazquez Covered Member ID Velazquez Member ID Guarantor Name 12/08/2023 2 [place] [employer] Brad Corey [id number] Brad Corey 12/08/2023 1 [facility] (MEDICAID HMO) [id number] Brad Corey [id number] Brad Corey 08/15/2020 SLIDING FEE SCHEDULE - DISCOUNT Brad Corey 04/02/2020 1 *SELF PAY* Candi Corey 03/01/2025 1 [facility] (MEDICARE - MEDICAID REPLACEMENT HMO) [id number] Brad Corey [id number] Brad Corey 03/01/2025 1 [facility] (MEDICARE REPLACEMENT HMO) Brad Corey [id number] Brad Corey Notes Date Note Type Note Provider Name and Address Organization Details Recorded Time 01/06/2024 text/html ROS as noted in the HPI Pt presents with L ear pain, sore throat, nasal congestion x4 days. He has been taking ibuprofen w/o relief. C/o bump behind his L ear and is concerned for infection. Pt went to UC 3 days ago and placed on doxycycline for infection to his new tattoo. Pt's daughter with similar sx. Denies fevers, chills, cough, sinus pressure, headaches, or SOB. HUE FLEMING Attn: Accounting,[address] [facility], [place], [address], [facility] 01/06/2024 13:41:10 06/05/2024 text/html ROS as noted in the HPI Pt presents with L ear pain x3 days. Reports he went to last week for sore throat and ear pain. He was diagnosed with viral infection and prescribed sudafed. States that he woke up with L ear throbbing 3 days ago, describes as feels like someone has their finger in my ear with constant pressure. He has been taking flonase daily and antihistamines PRN due to they knock me out. HUE FLEMING Attn: Accounting,[address] [facility], [place], [address], [facility] 06/05/2024 17:01:11 07/17/2024 text/html ROS as noted in the HPI Pt presents with abd pain x3 wks. Describes as lower left sided cramping, pressure that occurs daily and with palpation. Can last up to 30 minutes and then resolve. Not related to meals. Denies nausea, vomiting, diarrhea, or constipation. No trauma or injury. Pt took tylenol w/o relief. States that he does ab work and works out every morning HUE FLEMING Attn: Accounting,[address] [facility], [place], [address], [facility] 07/18/2024 10:57:19 03/01/2025 text/html ROS as noted in the HPI Pt presents for skin issues. States that he has bumps on the base of his penis and is concerned that it is herpes. Admits to monogamous relationship with his . No h/o STDs. HUE FLEMING Attn: Accounting,[address] [facility], [place], [address], [facility] 03/03/2025 16:19:54 03/14/2025 text/html Patient presents today c/o LUQ and left mid abdominal pain since July 2024. Thought it might have been a strained muscle and pain is worse with movement. Tried stretching and no relief. Pain comes and goes. Pantoprazole helps with acid reflux, but not this particular pain. Denies diarrhea, constipation. States he also may be due for a colonoscopy. Prior colonoscopy 2019 with acute colitis and hyperplastic polyp [facility] [address] [place], [address], [facility] 03/14/2025 11:42:37
--- OUTSIDE RECORDS SUMMARY | 2025-07-12 08:24 | XMS_ITS | Clinical Summary ---
Author Organization [facility] Address [address] [place] [address] Care Team Providers Care Medical Claims Representative Name Role Phone Alyson Corbett PA-C Primary Care Provider Source Comments [facility],non-owned Affiliates and Associated Physician Practices is amultiple site organization consisting of ambulatory clinics and hospital sitesin [place], [place], [place] and [place]. This disclosure is being madepursuant to the Care Everywhere program and may not contain all information available regarding this patient. Last updated 18.[facility] [employer] Allergies Active Allergy Reactions Criticality Noted Date Comments Pertussis Vaccines Unknown,Other Low 02/17/2021 Medications * Be aware that medications may not be up to date on this document. Alwaysverify current medications with the patient. Docusate Sodium (DSS) 100 MG Take 1 tablet by mouth at bedtime Active fluticasone propionate (Flonase) 50 MCG/ACT nasal spray Pearsall 1 (one) spray into each nostril once daily Active hydroCHLOROthia zide 12.5 MG Take 1 (one) tablet by mouth once daily Active lisinopril (Prinivil; Zestril) 10 MG tablet Take 1 (one) tablet by mouth once daily 07/09/2024 Active pantoprazole EC (Protonix) 40 MG tablet Take 1 (one) tablet by mouth once daily Active Active Problems No known active problems Social History Tobacco Use Types Packs/Day Years Used Date Smoking Tobacco: Never Smokeless Tobacco: Never Tobacco Cessation:Counseling Given: Not Answered Alcohol Use Standard Drinks/Week Comments Not Currently 0 (1 standard drink = 0.6 oz pur e alcohol) Sex and Gender Information Value Date Recorded Sex Assigned at Not on file Legal Sex Male 9:13 AM CDT Gender Identity Not on file Sexual Orientation Not on file Last Filed Vital Signs Vital Sign Reading Time Taken Comments Blood Pressure 121/82 07/11/2024 1:06 PM CDT Pulse 99 07/11/2024 1:06 PM CDT Temperature - - Respiratory Rate - - Oxygen Saturation - - Inhaled Oxygen Concentration - - Weight 90.3 kg (199 lb) 07/11/2024 1:06 PM CDT Height 175.3 cm (5' 9) 07/11/2024 1:06 PM CDT Body Mass Index 29.39 07/11/2024 1:06 PM CDT Plan of Treatment Health Maintenance Due Date Last Done Comments TD VACCINE 02/20/1995 HIV SCREENING 02/20/2003 HEPATITIS C SCREENING 02/16/2006 DTAP/TDAP/TD VACCINES (1 - Tdap) 02/20/2007 HEPATITIS B VACCINE (1 of 3 - 19+ 3-dose series) 02/20/2007 HPV VACCINE (1 - 3-dose SCDM series) 02/20/2015 DEPRESSION SCREENING 09/19/2024 MEDICARE AWV CALENDAR YEAR 2024 COVID-19 VACCINE (1 - 2023-2 5 season) 2025 INFLUENZA VACCINE (#1) 2025 ZOSTER VACCINE (1 of 2) 02/20/2038 HIB VACCINE Aged Out No longer eligi ble based on patient's age to complete this topic MENINGOCOCCAL (Group B) VACC INE SHARED DECISION-MAKING Aged Out No longer eligibl e based on patient's age to complete this topic MENINGOCOCCAL GROUPS A/C/Y/W VACCINE Aged Out No longer eligible b ased on patient's age to complete this topic PNEUMOCOCCAL VACCINE Aged Out No long er eligible based on patient's age to complete this topic Insurance [employer] Care Teams Medical Claims Representative Relationship Specialty Start Date End Date Alyson Corbett PA-C [address] [place] [phone] PCP - General 06/28/24
--- OUTSIDE RECORDS SUMMARY | 2025-07-12 08:24 | XMS_ITS | Clinical Summary ---
Author Organization [facility] Address [address] [place] [address] Care Team Providers Care Psychic Reader Name Role Phone None, Provider MD Primary Care Provider Unavaila ble Allergies No known active allergies Medications diazePAM 2 MG tablet Take 2 mg by mouth every 4 (four) hours. Active pantoprazole EC 20 MG tablet Take 20 mg by mouth daily. Active docusate sodium 100 MG capsule Take 100 mg by mouth 2 (two) times daily. Active polyethylene glycol packet Take 17 g by mouth daily. Dissolve powder in 240 mL water Active Family History Medical History Relation Comments cyclical vomiting syndrome Sister Relation Status Comments Sister Social History Tobacco Use Types Packs/Day Years Used Date Smoking Tobacco: Never Smokeless Tobacco: Never Alcohol Use Standard Drinks/Week Comments Never 0 (1 standard drink = 0.6 oz pur e alcohol) AUDIT-C Answer Date Recorded Q1: How often do you have a drink containing alc ohol? Never 06/18/2020 Average Number of Drinks Not on file 020 Frequency of Binge Drinking Not on file 05/22 Education Answer Date Recorded What is the highest level of school you have completed or the highest degree you have received? High school graduate 06/18/2020 Sex and Gender Information Value Date Recorded Sex Assigned at Not on file Legal Sex Male 7:08 PM CDT Gender Identity Not on file Sexual Orientation Not on file Last Filed Vital Signs Vital Sign Reading Time Taken Comments Blood Pressure 153/85 10/25/2023 3:14 PM ENGLISH LANGUAGE LEARNER TUTOR Pulse 99 10/25/2023 3:14 PM ENGLISH LANGUAGE LEARNER TUTOR Temperature 36.7 C (98 F) 10/25/2023 3:14 PM ENGLISH LANGUAGE LEARNER TUTOR Respiratory Rate 15 10/25/2023 3:14 PM ENGLISH LANGUAGE LEARNER TUTOR Oxygen Saturation 99% 10/25/2023 3:14 PM ENGLISH LANGUAGE LEARNER TUTOR Inhaled Oxygen Concentration - - Weight 88.5 kg (195 lb) 10/25/2023 3:14 PM ENGLISH LANGUAGE LEARNER TUTOR Height 175.3 cm (5' 9) 10/25/2023 3:14 PM ENGLISH LANGUAGE LEARNER TUTOR Body Mass Index 28.8 10/25/2023 3:14 PM ENGLISH LANGUAGE LEARNER TUTOR Plan of Treatment Health Maintenance Due Date Last Done Comments Annual Physical 02/20/1991 Hepatitis C 02/20/2006 DTaP, Tdap and Td Vaccines ( 1 - Tdap) 02/20/2007 1988 Hepatitis B Vaccines (1 of 3 - 19+ 3-dose series) 02/20/2007 HPV Vaccines (1 - 3-dose SCD M series) 02/20/2015 COVID-19 Vaccine (2024-2 6 season) 2025 Influenza Adult (#1) 2025 Hepatitis A Vaccines Aged Out No long er eligible based on patient's age to complete this topic Meningococcal B Vaccine Aged Out No l onger eligible based on patient's age to complete this topic Meningococcal Vaccine Aged Out No veronica celine eligible based on patient's age to complete this topic Pneumococcal Vaccine: Pediat rics (0 to 5 Years) and At-Risk Patients (6 to 49 Years) Aged Out No longer eligi ble based on patient's age to complete this topic RSV Immunizations Under 20 Months Aged Out No longer eligible based on patient's age to complete this topic Insurance MEDICAID MEDICAID Care Teams Psychic Reader Relationship Specialty Start Date End Date None, Provider, MD PCP - General UNKNOWN PHYSICIAN SPECIALTY 10/25/23
--- OUTSIDE RECORDS SUMMARY | 2025-07-12 08:24 | XMS_ITS | Clinical Summary ---
Author Organization [facility] Address [facility] [place] [address] Care Team Providers Care Franchise Consultant Name Role Phone Alyson Corbett Primary Care Provider [phone] Allergies Active Allergy Reactions Criticality Noted Date Comments Pertussis Vaccines Other (See comments) Low 021 Medications docusate sodium (COLACE) 100 mg capsule DOK 100 mg capsule Active famotidine (PEPCID) 20 mg tablet Take 20 mg by mouth 2 (two) times a day as needed [address] (PROTONIX) 40 mg EC tablet Take 40 mg by mouth daily 1 Active polyethylene glycol (MIRALAX) 17 gram/dose powder MIX AND DRINK 17G BY MOUTH EVERY DAY 1 Active psyllium (METAMUCIL) 3.4 gram packet Metamucil 3.4 gram/5.4 gram oral powder Week 1: Take 1 teaspoon mixed in water by mouth daily Week 2: Take 2 teaspoons mixed in water by mouth daily Week 3 and afterwards: Take 1 Tablespoon mixed in water by mouth daily Active pregabalin (Lyrica) 100 mg capsule Take 1 capsule (100 mg total) by mouth 2 (two) times a day 60 capsule 2 1 Active diazePAM (VALIUM) 5 mg tablet Take 5 mg by mouth 2 (two) times a day 2 Active hydrOXYzine (ATARAX) 10 mg tabletIndicatio ns:anxiety,Prur itus of Skin,Urticaria Take 1 tablet (10 mg total) by mouth every 6 (six) hours as needed for itching, allergies or anxiety for up to 20 doses 20 tablet 2 Active meloxicam (MOBIC) 15 mg tablet TAKE 1 TABLET(15 MG) BY MOUTH DAILY 30 tablet 5 Active Active Problems Problem Noted Date Diagnosed Date Trochanteric bursitis of right hip 10/07/2021 Lumbar spondylosis 10/07/2021 Lumbar radiculopathy 10/07/2021 Constipation 05/22/2021 Diverticulosis of colon 06/20/2020 Internal hemorrhoids 06/20/2020 Gastroesophageal reflux disease 05/09/2020 Low back pain 05/08/2020 Social History Tobacco Use Types Packs/Day Years Used Date Smoking Tobacco: Never Smokeless Tobacco: Never Personal Safety Answer Date Recorded Have you ever been in or are you currently in a harmful physical or emotional relationship or is someone making you feel afraid or unsafe? 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 Gender Identity Not on file Sexual Orientation Not on file Obstetrics History Last Filed Vital Signs Vital Sign Reading Time Taken Comments Blood Pressure 165/97 11/23/2024 4:01 AM PROOF TECHNICIAN HELPER Pulse 118 11/23/2024 4:01 AM PROOF TECHNICIAN HELPER Temperature 36.9 C (98.4 F) 11/23/2024 4:01 AM PROOF TECHNICIAN HELPER Respiratory Rate 18 11/23/2024 4:01 AM PROOF TECHNICIAN HELPER Oxygen Saturation 100% 11/23/2024 4:01 AM PROOF TECHNICIAN HELPER Inhaled Oxygen Concentration - - Weight 91.6 kg (201 lb 15.1 oz) 11/23/2024 4:07 AM PROOF TECHNICIAN HELPER Height 172.7 cm (5' 7.99) 11/23/2024 4:01 AM CS T Body Mass Index 30.71 11/23/2024 4:01 AM PROOF TECHNICIAN HELPER Plan of Treatment Health Maintenance Due Date Last Done Comments Depression Screening 1988 Hepatitis C Screening 1988 Varicella Vaccines (1 of 2 - 13+ 2-dose series) 02/20/2001 Regular Well Visit/Exam 18-64 02/20/2006 HPV Vaccines (1 - 3-dose SCDM series) 02/20/2015 DTaP/Tdap/Td Vaccine (5 - Tdap) 08/26/2018 08/25/2018, 05/14/1993, 07/13/1990, Additional history exists Influenza Vaccine (#1) 2025 Hepatitis B Screening Completed 06/26/1998 , 04/10/1998, 10/10/1997 Pneumococcal vaccine <65 Aged Out No longer eligible based on patient's age to complete this topic Insurance Member Subscriber Plan / Payer ( fective 2020-Present) Name:Brad Corey Relation to Subscriber:Self Name:Brad Corey Payer ID:[id number] (NAIC) Type:MEDICAID RISK OTHER Address: [address] [facility] IDAL MEDICARE [facility] Address: [address] [address] [place] [address] Care Teams Franchise Consultant Relationship Specialty Start Date End Date Alyson Corbett PA [address] [place] [id number] PCP - General Physician Scrap Metal Processing Worker 11/23/24
[2025-07-12 08:55] LABS: Hematocrit 47.0 % (42.0-52.0); Hemoglobin 15.7 g/dL (14.0-18.0); Immature Granulocyte Percent A 0.5 % (0-0.5); Lymphocytes Absolute Auto 1.32 K/mm3 (0.9-3.2); Mean Corpuscular HGB Conc 33.4 g/dl (32-36); Mean Corpuscular Hemoglobin 29.5 pg (26-34); Mean Corpuscular Volume 88.3 fl (80-100); Nucleated Red Blood Cells Absolute Auto 0.000 K/mm3 (0.0-0.012); Nucleated Red Blood Cells Perc 0.0 % (0.0-0.2); Platelet Count Result 371 k/mm3 (150-375); Red Blood Count 5.32 M/mm3 (4.6-6.20); White Blood Count 12.6 K/mm3 (4.5-10.0)
--- NOTE | 2025-07-12 08:59 | ED.GENADULT ---
HPI - General Adult General Chief complaint: GI Bleed Stated complaint: Blood in stool Time Seen by Provider: 07/12/25 07:59 History of Present Illness HPI narrative: Patient is a 35-year-old male who presents to the ER with abdominal cramping and blood in his stool. Has history of colonic polyps that have caused bleeding the past. Has known history of hemorrhoids. Started having some abdominal cramping that he thought was related to constipation. He got in a bathtub and was soaking and then started to have diarrhea. he had multiple incidences of diarrhea through the evening and had some mucoid stool with streaks of red blood. No fevers or chills. No loss of consciousness. He is not on a blood thinner. He has some pain and cramping in his left lower quadrant of the abdomen that is nonradiating. No aggravating or alleviating factors. Related Data Home Medications ?Medication ?Instructions ?Recorded ?Confirmed ?Last Taken ?Type pantoprazole 40 mg tablet,delayed 40 mg PO DAILY 12/02/21 05/28/24 Unknown History release lisinopril 10 mg tablet 10 mg PO DAILY 11/02/23 05/28/24 Unknown History hydrochlorothiazide 12.5 mg tablet mg 12/29/24 Unknown History Allergies Allergy/AdvReac Type Severity Reaction Status Date / Time Pertussis Vaccines Allergy Severe Dyspnea / Verified 07/12/25 08:44 SOB Review of Systems Review of Systems: All systems reviewed & are unremarkable except as noted in HPI and below Constitutional: Constitutional: Reports no additional constitutional complaints ENT: Reports system reviewed and no additional complaints, except as documented Cardiovascular: Cardiovascular: Reports no additional cardiovascular complaints Respiratory: Respiratory: Reports no additional respiratory complaints Gastrointestinal: Gastrointestinal: Reports no additional gastrointestinal complaints [facility] Past Medical History Medical History Chronic back pain Surgical History Surgical History History of tonsillectomy Family History Family History Mother Family history non-contributory Social History Social History Second hand tobacco smoke exposure: Yes Alcohol intake: never Substance use: current Substance use type: marijuana Living arrangements: with family Gender identity (if verbalized by the patient): Male Sexual Orientation (if Verbalized by the Patient): Straight or Heterosexual Spiritual care concerns: No Exam Narrative: GENERAL: Well-appearing, well-nourished, and in no acute distress. HEAD: Normocephalic, atraumatic. ENT: Mucous membranes moist. CHEST: Clear to auscultation. No respiratory distress. HEART: Regular rate and rhythm. Normal peripheral pulses. ABDOMEN: Soft, nontender, nondistended. Normal rectal exam. EXTREMITIES: Normal range of motion. No edema. SKIN: Warm, dry, no rash. NEURO: Alert and oriented x3. PSYCH: Normal mood and affect. Course Course Emergency Course: Patient educated on diagnosis and treatment plan. Appropriate for discharge home. Will place on oral antibiotics. Vital Signs Vital signs: Vital Signs Temperature 97.9 F 07/12/25 07:58 Pulse Rate 92 07/12/25 07:58 Respiratory Rate 18 07/12/25 07:58 Blood Pressure 150/101 H 07/12/25 07:58 Pulse Oximetry 98 07/12/25 07:58 Temperature 97.9 F 07/12/25 07:58 Pulse Rate 92 07/12/25 07:58 Respiratory Rate 20 07/12/25 08:32 Blood Pressure 138/82 07/12/25 08:32 Pulse Oximetry 97 07/12/25 08:32 Medical Decision Making Differential Diagnosis Differential Diagnosis: Colitis, diverticulitis, hemorrhoids Vital Signs Vital Signs: Vital Signs Temperature 97.9 F 07/12/25 07:58 Pulse Rate 92 07/12/25 07:58 Respiratory Rate 18 07/12/25 07:58 Blood Pressure 150/101 H 07/12/25 07:58 Pulse Oximetry 98 07/12/25 07:58 Temperature 97.9 F 07/12/25 07:58 Pulse Rate 92 07/12/25 07:58 Respiratory Rate 20 07/12/25 08:32 Blood Pressure 138/82 07/12/25 08:32 Pulse Oximetry 97 07/12/25 08:32 Lab Data Lab results reviewed: Yes I reviewed the patient's lab results. 07/12/25 08:40 07/12/25 08:40 Labs: Lab Results 10/24/25 Range/Units 08:40 WBC 12.6 H (4.5-10.0) K/mm3 RBC 5.32 (4.6-6.20) M/mm3 Hgb 15.7 (14.0-18.0) g/dL Hct 47.0 (42.0-52.0) % MCV 88.3 (80-100) fl MCH 29.5 (26-34) pg MCHC 33.4 (32-36) g/dl RDW 12.0 (11.5-14.5) % Plt Count 371 (150-375) k/mm3 MPV 8.4 (7.4-10.4) fl Immature Gran % (Auto) 0.5 (0-0.5) % Neut % (Auto) 83.8 H (45.5-73.1) % Lymph % (Auto) 10.5 L (18.3-44.2) % [place] % (Auto) 4.7 (2.6-8.5) % Eos % (Auto) 0.3 (0-4.4) % Baso % (Auto) 0.2 (0.2-1.2) % Lymph # (Auto) 1.32 (0.9-3.2) K/mm3 [place] # (Auto) 0.6 (0.1-0.6) K/mm3 Eos # (Auto) 0.0 (0-0.3) K/mm3 Baso # (Auto) 0.0 (0.0-0.1) K/mm3 Abs Immat Gran (auto) 0.06 H (0.00-0.031) K/mm3 Absolute Neuts (auto) 10.6 H (1.3-6.7) K/mm3 Absolute Nucleated RBC 0.000 (0.0-0.012) K/mm3 Nucleated RBC % 0.0 (0.0-0.2) % Sodium 138 (137-145) mmol/L Potassium 3.8 (3.4-5.0) mmol/L Chloride 100 (98-107) mmol/L Carbon Dioxide 27 (22-30) mmol/L Anion Gap 11 (4-12) mmol/L BUN 17 (9-20) mg/dL Creatinine 0.88 (0.7-1.3) mg/dL Estim Creat Clear Calc 0 ml/min Estimated GFR > 60 (59 - ) Glucose 116 H (65-110) mg/dL Calcium 9.3 (8.4-10.2) mg/dL Total Bilirubin 0.8 (0.2-1.3) mg/dL AST 32 (17-59) U/L ALT 37 (6-50) U/L Alkaline Phosphatase 92 (38-126) U/L Total Protein 8.1 (6.3-8.2) g/dL Albumin 4.8 (3.5-5.1) g/dL Lipase 41 (23-300) U/L Imaging Data Radiologist's impression: ITS Impressions Abdomen/Pelvis CT 07/12/25 09:34 IMPRESSION: Mild colitis probably infectious in nature. Discharge Plan Discharge Clinical Impression: Colitis Patient Disposition: Home Condition: Stable Instructions: Antibiotic Form, Colitis (ED) Additional Instructions: Please drink plenty of fluids at home. Return to the emergency department if you develop high fevers, have persistent severe abdominal pain, or have bloody stools or vomit, as these could be signs of a more serious medical emergency. Return to the emergency department if you are unable to keep down liquids because of severe nausea/vomiting. Patient Language: Congolese Prescriptions: New ciprofloxacin HCl [Cipro] 500 mg tablet 500 mg PO Q12H Qty: 10 0RF metronidazole 500 mg tablet 500 mg PO Q8H Qty: 15 0RF dicyclomine 20 mg tablet 20 mg PO QID Qty: 20 0RF No Action lisinopril 10 mg tablet 10 mg PO DAILY hydrochlorothiazide 12.5 mg tablet amoxicillin 875 mg tablet 875 mg PO Q12H 10 Days Qty: 20 0RF pantoprazole 40 mg tablet,delayed release (DR/EC) 40 mg PO DAILY Follow-up/Referrals: Chelle,HUE Shields [Primary Care Provider, Unknown] - 1 Week
[2025-07-12 09:13] LABS: Alanine Aminotransferase 37 U/L (6-50); Albumin Level 4.8 g/dL (3.5-5.1); Alkaline Phosphatase 92 U/L (38-126); Anion Gap 11 mmol/L (4-12); Aspartate Amino Transferase 32 U/L (17-59); Bilirubin,Total 0.8 mg/dL (0.2-1.3); Blood Urea Nitrogen 17 mg/dL (9-20); Calcium 9.3 mg/dL (8.4-10.2); Carbon Dioxide 27 mmol/L (22-30); Chloride 100 mmol/L (98-107); Estimated CRCL calculation 0 ml/min; Estimated Glomerular Filt Rate > 60; Glucose 116 mg/dL (65-110); Lipase 41 U/L (23-300); Potassium 3.8 mmol/L (3.4-5.0); Sodium 138 mmol/L (137-145); Total Protein 8.1 g/dL (6.3-8.2)
== END 2025-07-12 11:30 | disposition home or self-care (01) ==
PROVIDERS: Emergency Provider Emergency Medicine; PCP Physician Assistant
DX: K52.9 Noninfective gastroenteritis and colitis, unspecified (principal); Z86.0100 Personal history of colon polyps, unspecified; Z77.22 Contact with and (suspected) exposure to environmental tobacco smoke (acute) (chronic)
CPT/HCPCS: 36415; 74177; 80053; 83690; 85025; 99284; Q9967